=== PATIENT | male | born 1950 | race Caucasian/White ===

== ENCOUNTER 2019-07-23 07:23 | Outpatient (CLI) | payer OTHER, SELFPAY ==
--- NOTE | 2019-07-23 07:31 | USCV_ITS ---
JEFFREY PADILLA Age: 68 Gender: M : 1950 Exam Date: 07/23/2019 07:46 Ordering Phys: Azeem Ramirez MD ([email or web address]) Technologist: Jamari Anderson Exam Location: [facility] – [place] Indication: MURMUR BP: 127 / 73 HR: 73 Rhythm: Sinus Technical Quality: Fair MEASUREMENTS (Male / Female) Normal Values 2D ECHO LV Diastolic Diameter PLAX 4.1 cm 4.2 - 5.9 / 3.9 - 5.3 cm LV Systolic Diameter PLAX 2.7 cm IVS Diastolic Thickness 1.0 cm 0.6 - 1.0 / 0.6 - 0.9 cm IVS Systolic Thickness 1.3 cm LVPW Diastolic Thickness 1.0 cm 0.6 - 1.0 / 0.6 - 0.9 cm LVPW Systolic Thickness 1.4 cm LVOT Diameter 2.0 cm LV Ejection Fraction 2D Teich 64.6 % LA Diameter 4.8 cm LA Width 4.1 cm LA Height 5.8 cm RA Width 3.8 cm RA Height 4.9 cm Aorta at Sinotubular Diameter 3.2 cm M-MODE LV Diastolic Diameter MM 5.4 cm 4.2 - 5.9 / 3.9 - 5.3 cm LV Systolic Diameter MM 4.0 cm LV Ejection Fraction MM Teich 51.3 % IVS Diastolic Thickness MM 1.3 cm 0.6 - 1.0 / 0.6 - 0.9 cm IVS Systolic Thickness MM 1.5 cm LVPW Diastolic Thickness MM 1.2 cm 0.6 - 1.0 / 0.6 - 0.9 cm LVPW Systolic Thickness MM 1.6 cm RV Diastolic Diameter MM 1.5 cm Aortic Annulus Diameter 3.9 cm LA Ao Ratio MM 1.2 MV E Point Septal Separation 1.5 cm DOPPLER AV Peak Velocity 399.0 cm/s LVOT Peak Velocity 98.0 cm/s AV Area Cont Eq vti 0.8 cm squared AV Area Cont Eq pk 0.8 cm squared MV E' Velocity 10.0 cm/s TR Peak Velocity 202.0 cm/s TR Peak Gradient 16.3 mmHg TV Peak E Velocity 103.0 cm/s Right Atrial Pressure 3.0 mmHg Pulmonary Artery Systolic Pressu 19.3 mmHg FINDINGS Left Ventricle Normal left ventricular size and systolic function, EF 65%.mild left ventricular hypertrophy. No regional wall motion abnormalities. Right Ventricle The right ventricle is normal in size and function. Right Atrium The right atrium is normal in size. Left Atrium Mildly increased left atrial size. Mitral Valve Thickened mitral valve. Aortic Valve Possibly severe aortic valve stenosis with a peak velocity of 4 m/s with a peak gradient of 64 and a mean gradient of 30 mmHg. Calculated aortic valve area of 0.76 cm squared Tricuspid Valve Trace tricuspid valve regurgitation. Pulmonic Valve Pulmonic valve not well visualized. Pericardium Normal pericardium without effusion. Aorta Normal ascending aorta dimension. CONCLUSIONS Normal left ventricular size and systolic function, EF 65%.mild left ventricular hypertrophy. No regional wall motion abnormalities. Possibly severe aortic valve stenosis with a peak velocity of 4 m/s with a peak gradient of 64 and a mean gradient of 30 mmHg. Calculated aortic valve area of 0.76 cm squared. Thickened mitral valve. Trace tricuspid valve regurgitation. There is no pericardial effusion. There are no intracardiac masses. Technically somewhat difficult study No previous study is available for comparison. Dr Mono Hartman MD [facility] (Electronically Signed) Final Date: 23 July 2019 23:03 S
== END 2019-07-23 07:24 | disposition home or self-care (01) ==
LOC: RAD 07:28
PROVIDERS: PCP Internal Medicine; Visit Provider Internal Medicine Cardiovascular Disease
DX: R01.1 Cardiac murmur, unspecified (principal); I05.9 Rheumatic mitral valve disease, unspecified
CPT/HCPCS: 93306

== ENCOUNTER 2019-08-22 13:20 | Outpatient (CLI) | payer OTHER, SELFPAY ==
[2019-08-22 14:25] LABS: Basophils % 0.6 %; Eosinophils # 0.1 10^3/uL (0.0-0.8); Eosinophils % 1.2 %; Hematocrit 45.5 % (42.0-52.0); Hemoglobin 15.2 g/dL (11.7-16.6); Lymphocytes % 43.8 %; Mean Corpuscular HGB Conc 33.4 g/dL (30.0-36.0); Mean Corpuscular Hemoglobin 29.5 pg (28.0-34.0); Mean Corpuscular Volume 88.2 fL (80-94); Mean Platelet Volume 9.8 fL (7.4-10.4); Monocytes # 0.4 10^3/uL (0.2-0.9); Monocytes % 6.2 %; Neutrophils # 3.3 10^3/uL (1.8-7.7); Neutrophils % 48.1 %; Nucleated Red Blood Cells % 0 %; Platelet Count 221 10^3/cmm (130-400); Red Blood Count 5.16 10^6/uL (4.1-5.3); Red Cell Distribution Width 13.4 % (12.1-15.1); White Blood Count 6.9 10^3/uL (4.0-10.0)
[2019-08-22 14:38] LABS: INR 0.93 (0.8-1.2)
[2019-08-22 14:39] LABS: Partial Thromboplastin Time 24.2 SECONDS (23.9-36.7)
== END 2019-08-22 13:21 | disposition home or self-care (01) ==
LOC: LAB 13:27
PROVIDERS: PCP Internal Medicine; Visit Provider Internal Medicine Cardiovascular Disease
DX: I10 Essential (primary) hypertension (principal); I35.0 Nonrheumatic aortic (valve) stenosis; R01.1 Cardiac murmur, unspecified; Z79.82 Long term (current) use of aspirin; Z79.899 Other long term (current) drug therapy
CPT/HCPCS: 83880; 85025; 85610; 85730; 86850; 86900

== ENCOUNTER 2019-10-10 15:06 | Outpatient (CLI) | payer OTHER, SELFPAY ==
[2019-10-10] VITALS (29 sets, daily range): BP systolic 110–144; BP diastolic 70–86; PULSE 53–74; RESP 16–18; TEMP 36.6; O2SAT 91–96; BMI 29.0
[2019-10-10 08:05] LABS: Basophils % 0.6 %; Eosinophils # 0.2 10^3/uL (0.0-0.8); Eosinophils % 2.8 %; Hematocrit 44.1 % (42.0-52.0); Hemoglobin 14.9 g/dL (11.7-16.6); Lymphocytes # 2.6 10^3/uL (0.8-4.8); Lymphocytes % 39.1 %; Mean Corpuscular HGB Conc 33.8 g/dL (30.0-36.0); Mean Corpuscular Hemoglobin 30.5 pg (28.0-34.0); Mean Corpuscular Volume 90.2 fL (80-94); Mean Platelet Volume 9.9 fL (7.4-10.4); Monocytes # 0.6 10^3/uL (0.2-0.9); Monocytes % 8.7 %; Neutrophils # 3.2 10^3/uL (1.8-7.7); Neutrophils % 48.7 %; Nucleated Red Blood Cells % 0 %; Platelet Count 199 10^3/cmm (130-400); Red Blood Count 4.89 10^6/uL (4.1-5.3); Red Cell Distribution Width 13.2 % (12.1-15.1); White Blood Count 6.7 10^3/uL (4.0-10.0)
[2019-10-10 08:16] LABS: INR 0.94 (0.8-1.2)
[2019-10-10 08:22] LABS: Anion Gap 15.5 (5-19); Blood Urea Nitrogen 23 mg/dL (8-23); Calcium 9.9 mg/dL (8.5-10.5); Carbon Dioxide 24 mmol/L (22-29); Chloride 100 mmol/L (98-107); Glomerular Filtration Rate 54.9 mL/min (90-130); Glucose 109 mg/dL (65-115); Osmolality Calculated 277 mOsm/kg (285-295); Potassium 4.5 mmol/L (3.5-5.1); Sodium 135 mmol/L (136-145)
--- NOTE | 2019-10-10 08:30 | XACV_ITS ---
Ht: 163 cm Wt: 77 kg BSA: 1.88 m2 Gender: Male : 1950 Exam Priority: Routine Indication(s): - Aortic stenosis by Echo Procedure(s): Procedure Description: Diagnostic procedure Procedure Description: Left Heart Catheterization Procedure Description: Right Heart Catheterization Procedure Description: O2 saturation Procedure Description: Coronary Angiography Diagnostic Cath Status: Elective Diagnostic Findings No significant disease noted in the Left Main, LAD, Circumflex, or RCA coronary arteries. Coronary angiography shows right dominance. PCI Status: Elective Conclusions R ight heart CATHETERIZATION #1 Mildly elevated PCWP 17mmHg #2 normal PA mean 23 mmHg#3 Mildly elevated right ventricular pressure 32/2#4 RA mean 9 mmHgCardiac output by [facility] 5 L/m cardiac index 2.8 L/m/m2No shunt noted in the chambersPeak to peak aortic gradient was 35 mmHg consistent with severe aortic stenosis . No significant disease noted in the Left Main, LAD, Circumflex, or RCA coronary arteries. Indication for left heart catheterization: Preoperative procedure for aortic valve replacement due to severe stenosis. Recommendations Continue current medical management and risk factor modification. Refer to CT surgery for aortic valve replacement. Diagnostic RX Recommendation: none Pressures Phase:Rest AO : 140 mmHg / 24 mmHg ( 54 mmHg ) @ 6:24:00 AM 111 mmHg / 50 mmHg ( 76 mmHg ) @ 6:24:00 AM 102 mmHg / 69 mmHg ( 82 mmHg ) @ 6:45:00 AM LV : 145 mmHg / 7 mmHg / @ 6:23:00 AM RV : 36 mmHg / 2 mmHg / @ 5:53:00 AM PA : 183 mmHg / 166 mmHg ( 164 mmHg ) @ 5:51:00 AM 34 mmHg / 8 mmHg ( 15 mmHg ) @ 5:51:00 AM 41 mmHg / 16 mmHg ( 23 mmHg ) @ 5:52:00 AM RA : a wave = v wave = mean = 9 mmHg @ 5:55:00 AM a wave = v wave = mean = 9 mmHg @ 5:55:00 AM O2 Content Phase:Rest PA : O2 Content O2: 76.9 % @ 6:45:00 AM Saturations Phase:Rest AO : 99 % @ 6:23:00 AM RA : 78 % @ 6:24:00 AM RV : 77 % @ 6:24:00 AM PA : 77 % @ 6:45:00 AM Cardiac Output Phase:Rest [facility] : 5 l/min @ 6:24:00 AM [facility] Cardiac Index: 3 L/min/m2 @ 6:24:00 AM Clinical Evaluation EBL: 5mL-10mL Procedural Details Procedure Consent Obtained. Pre-Procedure Time Out. Identified patient by full name and date of as verbalized by the patient/guarantor. Does the consent match the physician's order: Yes. Accurate & Complete Informed Consent: Yes. Inpatient/Outpatient History & Physical on Chart: Yes. If H&P is completed, is and addenduem needed: No; If yes, is the addendum complete: N/A. Visualize and Verify Site with Patient/Guarantor: N/A. Relevant Radiology Images available: N/A. The risks, benefits, and alternatives of sedation and/or procedure were discussed by physician. The patient agrees to continue. Procedure started. Correct patient, site and procedure confirmed by cath team. PERRLA. Strong, equal hand pediatric dental assistant bilaterally. Lungs clear x 5 lobes. IV Site on Arrival: 20 gauge in the left anticubital. IV Fluids: 0.9% NaCl at KVO. 100 mL infused prior to tin can laborer. Pre Procedural Pulses: bilateral dorsalis pedis was 2+. Pre Procedural Pulses: bilateral posterior tibial was 2+. Pre Procedural Pulses: right radial was 2+. bilateral groins was prepped with chloroprep then draped in the usual sterile fashion. right brachial was prepped with chloroprep then draped in the usual sterile fashion. right radial was prepped with chloroprep then draped in the usual sterile fashion. Physician notified. Baseline sample Acquired. HR: 85 BPM. Patient's family unavailable. Equipment: 6F - Radial. Correct Patient: Yes; Correct Procedure: Yes; Correct Site: Yes; Correct Patient Position: Yes; Correct Supplies: Yes; Dried Flammable Prep: Yes; Blood Products Available: N/A;. Current diagnosis: Severe aortic stenosis. Physician arrived. Physician scrubbed in. Immediate Pre-Procedure Time Out. Lidocaine 1% infiltrated to the right brachial. 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 Chest Pain Symptom Assessment: typical #2. Cardiovascular Instability: No,. [place] MON catheter inserted. Oximetry samples were obtained. Normal venous range: 60-85%. Normal arterial range: 95-100%. Pressure measurements obtained. [place] out. Lidocaine 1% infiltrated to the right radial. A 6 croatian TIG catheter in over wire. Catheter inserted over the exchange wire. Catheter out. Catheter removed over the exchange wire. A 6 croatian Duncan catheter in over wire. Multiple views taken of right coronary artery. EDP Sample taken: LV 145/7,17; HR: 59 BPM; SpO2: 90%. Pullback taken: LV Off; AO Off; Mean: , Peak to Peak: , SEP: ; HR: 53 BPM; SpO2: 91%. A 6 croatian AL1 catheter in over wire. A 6 croatian JL4.5 catheter in over wire. Multiple views taken of left coronary artery. CRD 6 FR XB 3.5 GUIDE inserted and left coronary views taken. A 5 croatian Angled Pig catheter in over wire. Aortagram performed in [place] @ 10 mL/second for a total of 40 mL. TR band placed. Hemostasis obtained. Brachial sheath removed compression bandage applied. Post Procedure: Pulses reassessed and unchanged. PERRLA. Strong, equal hand pediatric dental assistant bilaterally. No VTE prophylaxis required. Total IV fluids: 30 mL. Fluoro: 22:00. Contrast type used: Omnipaque 300 mgI/mL, 500 mL bottle. Post-op diagnosis: severe aortic stenosis. Complications: none. Estimated blood loss: 5mL-10mL. Procedure completed. Medication's Wasted: Lidocaine 1% = 12 mL. Medication's Wasted: Nitro = 49.8 mL. Medication's Wasted: Heparin = 1000 Units. Medication's Wasted: Other Fentnyl= 50 mg. Medication's Wasted: Other Versed = 1 mg. Patient transferred by wheelchair to [address] [place] [address]. Vital chart was stopped. Omnipaque 213mL. Site: Right Brachial Vein Sheath Size: 6 Fr Hemostasis Success: Unsuccessful Site: Right Radial artery Sheath Size: 6 Fr Hemostasis Success: Unsuccessful Procedure Medications Start: 10:31 AM Stop: 10:31 AM Medication: Versed Amount: 1 mg Route: I.V. Start: 10:32 AM Stop: 10:32 AM Medication: Fentanyl Amount: 50 mcg Route: I.V. Start: 10:40 AM Stop: 10:40 AM Medication: Versed Amount: 1 mg Route: I.V. Start: 11:04 AM Stop: 11:04 AM Medication: Nitrogylcerin Amount: 200 mcg Route: I.A. Start: 11:07 AM Stop: 11:07 AM Medication: Heparin Amount: 5000 units Route: I.V. Start: 11:19 AM Stop: 11:19 AM Medication: Versed Amount: 1 mg Route: I.V. I, the attending physician, have reviewed and verified all procedure medications. Yes, all medications given per verbal order History/Risk Factors Hypertension: Yes Dyslipidemia: No Peripheral Arterial Disease (PAD): No Myocardial Infarction (AR): No Obesity: No Renal Disease: No Tobacco Use: Former Prior Interventions PCI: No CABG: No Valve Surgery: No Report Signatures Finalized by:Azeem Ramirez MD on 10/13/2019 4:04:07 PM
--- NOTE | 2019-10-10 08:46 | PC.NURSE ---
Creatinine Dr Raimrez notified of creatinine of 1.3, no previous labs to compare. Orders to start NS at 100ml/hr at this time.
[2019-10-10] MEDS: sodium chloride 0.9% 1,000 ML 100 ML IV (08:51)
[2019-10-10] MEDS: diphenhydrAMINE 50 mg Capsule PO (08:52)
--- NOTE | 2019-10-10 09:29 | PM.SDS ---
Short Stay Summary Providers Date of Admit/Discharge: 10/10/19 Attending Provider: Azeem Ramirez MD Primary Care Provider: aMrkie Snell HPI History of Present Illness Georges David is a 68 year old male Past medical history significant for attention, history of smoking quit many years ago, Hyperlipidemic, diabetic with baseline creatinine of 1.3 He is here for left and right heart catheterization as a preop work for severe aortic stenosis. Recent echocardiogram was suggestive of aortic valve area of 0.76 cm care with 4 m/s velocity across the aortic valve. Peak and mean gradient was 64 and 30 mmHg respectively. On a steady pace he still can walk but become short of breath upon mild to moderate exertion. He denies syncope. Left Ventricle ejection fraction was within normal limits of 64%. Last time he Treated me in the clinic in July of this year. There is no interval change in history and physical examination. He denies fever or chills or cough nausea vomiting diarrhea recent traveling or contact with sick person. Review of Systems General: Reports: 10 or more systems reviewed and unremarkable except in HPI and below Const: Denies: fever, chills, body aches, change in appetite, change in weight, malaise, night sweats or diaphoresis Eyes: Denies: change in vision or blurry vision Card: Reports: shortness of breath on exertion; Denies: chest pain, palpitations, irregular heart rhythm, edema, swelling of feet/ankles, lightheadedness, syncope, pre-syncope, shortness of breath when lying down or leg pain with exertion Resp: Reports: shortness of breath; Denies: productive cough, non-productive cough, wheezing, stridor, pain on inspiration, change in phlegm color, coughing up blood or chest congestion GI: Denies: abdominal pain, nausea, vomiting or vomiting blood Musc: Denies: neck pain, back pain or extremity pain Skin/Breast: Denies: rash, itching or redness Neuro: Denies: headache, numbness in extremities or weakness in extremities Psych: Denies: anxiety, depression or mood swings Endo: Reports: excessive urination Home Meds/Allergies Home Medications and Allergies Home Medications Medication Instructions Recorded Confirmed Type amlodipine 5 mg tablet 5 mg PO DAILY 07/31/19 10/09/19 History aspirin 325 mg tablet 325 mg PO DAILY 07/31/19 10/09/19 History atorvastatin 40 mg tablet 40 mg PO DAILY 07/31/19 10/09/19 History benazepril 20 mg tablet 10 mg PO DAILY 07/31/19 10/09/19 History fluticasone propionate 50 1 spray INTRANASAL DAILY 07/31/19 10/09/19 History mcg/actuation nasal spray,suspension metformin 1,000 mg tablet 500 mg PO BID tab 07/31/19 10/09/19 History Allergies Allergy/AdvReac Type Severity Reaction Status Date / Time Penicillins Allergy Unknown Unknown Verified 07/31/19 10:53 PFSH Acute PFSH: Medical History (Updated 10/10/19 @ 09:51 by Azeem Ramirez MD) Aortic stenosis, severe Patient today is here for preop aortic valve left and right heart CATHETERIZATION. Patient has been explained all risks benefits and alternative for the procedure. He would like to proceed with it.Further plan will be advised after angiogram/PCI if indicated for coronary artery disease. Heart murmur HTN (hypertension) Well controlled. Continue current regimen. Hyperlipemia Renal dysfunction Baseline creatinine 1.3. Patient has been gently Hydrated with IV fluid. Social History Smoking and tobacco status: former smoker History of recent travel: No Vitals/I&O/Wt Last Vital Signs Temp 97.9 F 10/10/19 08:23 Pulse 61 10/10/19 08:23 Resp 18 10/10/19 08:23 BP 144/86 10/10/19 08:23 Pulse Ox 96 10/10/19 08:23 Weight last 48 hrs Weight 169 lb Physical Exam Narrative: EXAM NARRATIVE: GENERAL: Patient is alert, awake and oriented x3. NECK: No jugular vein distension. HEENT: No cyanosis. No icterus. No pallor. HEART: Regular S1 and S2. 2/6 systolic murmur, rub or gallop. LUNGS: Clear to auscultate bilaterally. ABDOMEN: Soft, nontender and nondistended. Positive bowel sounds. No guarding, rebound or tenderness. CENTRAL NERVOUS SYSTEM: Grossly nonfocal. EXTREMITIES: Lower extremities trace edema bilaterally. Hospital Course Admission Diagnoses: Severe aortic stenosis hypertension Hyperlipidemia Hospital Course: Patient underwent right and left heart CATHETERIZATION for severe aortic stenosis diagnosed on the basis of physical examination symptoms and echocardiogram. Left heart catheterization showed normal coronaries. Pressure gradient across the aortic valve was 35 mmHg which was peak to peak. Postop recovered without any complication.Patient was given IV fluid before and after the procedure.Overall he is stable Can be discharged home. He is going to follow-up with Dr. Fine for aortic valve replacement consultation. Discharge Summary: As above SSS Data Data Completed and Pending: Pending at discharge Category Date Time Status DIRECTOR OF EMERGENCY NURSING request for service Routin e Exams 10/10/19 08:30 Ordered Diagnoses at Discharge Discharge Diagnosis (1) Aortic stenosis, severe: Status: Acute Problem details: Patient today is here for preop aortic valve left and right heart CATHETERIZATION. Patient has been explained all risks benefits and alternative for the procedure. He would like to proceed with it.Further plan will be advised after angiogram/PCI if indicated for coronary artery disease. (2) Renal dysfunction: Status: Acute Problem details: Baseline creatinine 1.3. Patient has been gently Hydrated with IV fluid. (3) HTN (hypertension): Status: Acute Problem details: Well controlled. Continue current regimen. Qualifiers: Hypertension type: essential hypertension Qualified Code(s): I10 - Essential (primary) hypertension Discharge Plan Discharge Condition: Stable Prescriptions: Continued aspirin 325 mg tablet 325 mg PO DAILY RF: 0 metformin 1,000 mg tablet 500 mg PO BID RF: 0 fluticasone propionate [Children's Flonase Allergy Rlf] 50 mcg/actuation spray,suspension 1 spray INTRANASAL DAILY RF: 0 atorvastatin 40 mg tablet 40 mg PO DAILY RF: 0 amlodipine 5 mg tablet 5 mg PO DAILY RF: 0 benazepril 20 mg tablet 10 mg PO DAILY RF: 0 Discharge Orders: Discharge Order (Routine); Ordered 10/10/19 Ordered By: Azeem Ramirez Referrals: Bassam Fine MD [Physician] - 10/17/19 2:30 pm Discharge Diet: Diabetic, Low Salt and Low Cholesterol Discharge Activity: Increase activity as tolerated Patient Instructions: Left Heart Catheterization (DC), Right Heart Catheterization (DC) Activity Restrictions/Additional Instructions: No lifting of weight with right hand for next 48 hours. You will be scheduled to see Dr. Fine heart surgeon for aortic valve replacement consultation over the next few days. Dr. Fine's nurse will call you for an appointment. Attestations Medical Necessity Statement*: Patient can be discharged home Time Spent in Patient Care*: greater than 30 min Specific Discharge Activities: Specific discharge activities: educating patient Quality Metrics Clinical Quality Measures: During this hospital stay, did patient experience: None Coding Level of Care Code Acute Vb Net Programmer for Chg Fwd Diagnoses Aortic stenosis, severe I35.0 Renal dysfunction N28.9 HTN (hypertension) I10 Hypertension type: essential hypertension
--- NOTE | 2019-10-10 09:51 | W.PM.OPSUD ---
Surgery/Procedure H&P Update DATE OF PROCEDURE: October 10, 2019 DATE H&P PERFORMED: 10/10/19 H&P UPDATE INFORMATION: I have reviewed H&P completed within last 30 days, I have examined patient prior to procedure and No changes to prior documentation PREOP DIAGNOSIS: Severe aortic valve disease PLANNED PROCEDURE: Operation Date: 10/10/19 08:30 Proposed Procedures p Cardiac Catheterization(Bilateral) - Azeem Ramirez MD PATIENT REASSESSED PRIOR TO SEDATION, WITH NO CHANGE NOTED: Yes PHYSICAL EXAM: alert, oriented x 3, clear to auscultation bilaterally and regular rate & rhythm AIRWAY EVAL/ANESTHESIA PLAN: normal airway, see other exam findings, ASA II, Local Anesthesia, Risks, benefits & alternatives of sedation and/or procedure discussed and Patient agrees to continue as planned
--- NOTE | 2019-10-10 19:28 | PC.NURSE ---
TR band removed from right wrist. No s/s of bleeding or hematoma formation observed. Cleaned site, applied 2x2 and coban. Instructed patient on site care and restrictions. Patient verbalized complete understanding. Patient stated, I will be extra careful for a few days. I don't want to start bleeding. VS remained WNL.
--- NOTE | 2019-10-10 19:53 | PC.NURSE ---
Patient discharged to home. Patient had dressing in place to right wrist that is clean, dry, and intact. No s/s of bleeding or hematoma formation observed. Reinforced education regarding site care and restrictions. Instructed on follow up information. Patient verbalized complete understanding of all instruction. Patient left ambulatory to private vehicle accompanied by OLIVIA Marlow to ED exit.
== END 2019-10-10 19:56 | disposition home or self-care, planned readmission (81) ==
LOC: MEDSURG 18:32 → OPMS 10-11 08:12 → MEDSURG 10-14 07:53
PROVIDERS: PCP Internal Medicine; Visit Provider Internal Medicine Cardiovascular Disease
DX: I35.0 Nonrheumatic aortic (valve) stenosis (principal); N28.9 Disorder of kidney and ureter, unspecified; I10 Essential (primary) hypertension; Z79.82 Long term (current) use of aspirin; Z87.891 Personal history of nicotine dependence; E78.5 Hyperlipidemia, unspecified; E11.9 Type 2 diabetes mellitus without complications; Z79.84 Long term (current) use of oral hypoglycemic drugs
CPT/HCPCS: 12345; 80048; 85025; 85610; 93460; 93567; 96360; 96361; C1751; C1769; C1887; C1894; J1644; J2001; J2250; J3010; J3490; J7030; Q0163; Q9967

== ENCOUNTER 2019-10-23 11:16 | Outpatient (CLI) | payer OTHER, SELFPAY ==
--- NOTE | 2019-10-23 11:45 | USCV_ITS ---
Georges David Age: 68 Gender: M : 1950 Exam Date: 10/23/2019 11:31 Ordering Phys: Bassam Fine MD (Andy) ([email or web address] [place] Technologist: Estephania Cantu Exam Location: [facility] – [place] Indication: TIA Risk Factors: Unknown Previous Vascular Surgery: None Right Brachial BP: / Left Brachial BP: / Right Left Velocity (cm/s) Spectral Plaque Velocity (cm/s) Spectral Plaque Syst/Diast Broadening Syst/Diast Broadening 56.20/ 16.50 Prox CCA 78.50 / 31.10 48.50/ 22.10 Mid CCA 59.80 / 24.10 52.90/ 22.10 Distal CCA 48.90 / 21.00 28.70/ 12.40 Prox ICA 22.00 / 13.00 31.10/ 16.30 Mid ICA 32.90 / 17.10 44.30/ 22.50 Distal ICA 41.70 / 23.80 71.70 ECA 52.80 0.91 ICA/CCA 0.70 Antegrade Vertebral Antegrade 38.10/ 14.00 cm/s 29.10/ 15.60 cm/s Tri Subclavian Tri 46.60 36.30 FINDINGS Comparison: none available. No significant elevation of systolic or diastolic velocities. Waveforms are normal. No significant amount of calcified plaque or intimal thickening identified. CONCLUSIONS Normal carotid doppler ultrasound. Dr. Lauren Falcon DO (Electronically Signed) Final Date: 23 Oct 2019 11:58 S
== END 2019-10-23 11:17 | disposition home or self-care (01) ==
LOC: RAD 11:19
PROVIDERS: PCP Internal Medicine; Visit Provider Thoracic Surgery (Cardiothoracic Vascular Surgery)
DX: G45.9 Transient cerebral ischemic attack, unspecified (principal)
CPT/HCPCS: 93880

== ENCOUNTER 2019-10-28 16:35 | Inpatient (IN) | payer OTHER, SELFPAY ==
[2019-10-25 08:24] VITALS: BMI 26.6
--- NOTE | 2019-10-25 09:03 | ANES.PREANE2 ---
Pre-Anesthetic Assessment Pre-Anesthetic Assessment: Height/Weight: Height 1.65 m Weight 72.575 kg Preop Diagnosis: Severe aortic valve disease Proposed Procedure: Operation Date: 10/28/19 07:00 Proposed Procedures p Aortic Valve Replacement(Not Applicable) - Bassam Fine MD Familial anesthetic complications: None Social: Social History: No alcohol and No tobacco Exam: Pre-Anes Outpt Exam: alert, oriented x 3, clear to auscultation bilaterally and regular rate & rhythm Airway: Cervical ROM: WNL MP: 3 Dentition: False Pulmonary: Pulmonary: None reported CV/HEM: CV/HEM: HTN and Murmur (aortic stenosis) : : None reported Hepatic: Hepatic: None reported GI: GI: None reported Metabolic: Metabolic: None reported Musc/skel: Comments: L1 compression fracture Neuropsych: Neuropsych: TIA ( last year) Anesthetic Plan: ASA status: 4 Anesthesia: General Risk of > 500 ml blood loss (7ml/kg in children): No PFSH Anesthesia PFSH: Medical History (Updated 10/17/19 @ 15:32 by Bassam Fine MD) Aortic stenosis, severe Heart murmur HTN (hypertension) Well controlled. Continue current regimen. Hyperlipemia Renal dysfunction Baseline creatinine 1.3. Patient has been gently Hydrated with IV fluid. Social History Smoking and tobacco status: former smoker Alcohol intake: current Alcohol intake frequency: other Household members: spouse Marital status: service: Yes Current occupational status: retired History of recent travel: No Data Anesthesia Cardiac Studies: No Data to Display
[2019-10-25 09:09] LABS: Basophils # 0.1 10^3/uL (0.0-0.1); Basophils % 0.8 %; Eosinophils # 0.1 10^3/uL (0.0-0.8); Eosinophils % 1.8 %; Hematocrit 44.9 % (42.0-52.0); Hemoglobin 15.1 g/dL (11.7-16.6); Lymphocytes # 2.6 10^3/uL (0.8-4.8); Lymphocytes % 41.3 %; Mean Corpuscular HGB Conc 33.6 g/dL (30.0-36.0); Mean Corpuscular Hemoglobin 30.4 pg (28.0-34.0); Mean Corpuscular Volume 90.5 fL (80-94); Mean Platelet Volume 9.9 fL (7.4-10.4); Monocytes # 0.4 10^3/uL (0.2-0.9); Neutrophils # 3.1 10^3/uL (1.8-7.7); Neutrophils % 48.9 %; Nucleated Red Blood Cells % 0 %; Platelet Count 220 10^3/cmm (130-400); Red Blood Count 4.96 10^6/uL (4.1-5.3); Red Cell Distribution Width 13.3 % (12.1-15.1); White Blood Count 6.3 10^3/uL (4.0-10.0)
[2019-10-25 09:16] LABS: INR 0.94 (0.8-1.2)
[2019-10-25 09:17] LABS: Partial Thromboplastin Time 28.5 SECONDS (23.9-36.7)
[2019-10-25 09:29] LABS: Alanine Aminotransferase 21 U/L (0-41); Albumin Level 4.4 g/dL (3.5-5.2); Alkaline Phosphatase 79 IU/L (40-130); Anion Gap 16.6 (5-19); Aspartate Amino Transferase 17 U/L (0-40); Blood Urea Nitrogen 18 mg/dL (8-23); Calcium 10.2 mg/dL (8.5-10.5); Carbon Dioxide 24 mmol/L (22-29); Chloride 102 mmol/L (98-107); Globulin 3.3 g/dL (1.3-4.6); Glomerular Filtration Rate 54.7 mL/min (90-130); Glucose 110 mg/dL (65-115); Osmolality Calculated 283 mOsm/kg (285-295); Potassium 4.6 mmol/L (3.5-5.1); Sodium 138 mmol/L (136-145); Total Bilirubin 0.7 mg/dL (0.15-1.2); Total Protein 7.7 g/dL (6.6-8.7)
[2019-10-25 09:44] LABS: Add Urine Microscopic? YES; Bilirubin Urine Neg (NEGATIVE); Blood Urine 2+ (Negative); Glucose Urine UA Norm (Normal); Ketones Urine Negative (Negative); Leukocyte Esterase Urine Negative (Negative); Nitrate Urine Negative (Negative); Protein Urine Neg (Negative); Urine Appearance Clear (CLEAR); Urine Color Yellow (Yellow); Urobilinogen Urine Norm (Negative)
[2019-10-25 09:45] LABS: Add Urine Culture? No; Bacteria Urine TRACE; Mucus Urine 2+; RBC Urine 0-4 /hpf (0-2); Squamous Epithelial Cell Urine 0-4 (0-5)
[2019-10-28] VITALS (54 sets, daily range): BP systolic 81–141; BP diastolic 43–91; PULSE 61–100; RESP 13–26; TEMP 36.4–38; O2SAT 94–100
[2019-10-28] MEDS: sodium chloride 0.9% 1,000 ML 30 ML IV (05:29)
[2019-10-28 05:32] LABS: Glucose Point of Care 106 mg/dL (70-110)
--- NOTE | 2019-10-28 05:45 | XR_ITS ---
WS: [id number] Portable AP upright chest, 10/28/2019 Clinical Data: protocol for anesthesia Comparison: None. Findings: No nodules, masses or effusions are seen. The heart is normal. The pulmonary vascularity is not increased. No pneumonia or pneumothorax is seen. The aortic arch and descending aorta show tortu osity. There is levoscoliosis of the lower thoracic spine. XR/XR chest 1V portable [id number] Impression: Atherosclerosis.
--- NOTE | 2019-10-28 06:13 | ECG_ITS ---
Measurements Intervals [place] Rate: 62 P: 26 W[place]: 213 QRS: -20 QRSD: 88 T: -7 QT: 400 QTc: 407 SINUS RHYTHM WITH FIRST DEGREE AV BLOCK No previous ECG available for comparison Electronically Signed On 10-28-2019 19:47:09 CDT by Kelle Carter M.D. [email or web address]
--- NOTE | 2019-10-28 06:20 | P.ANESUD_ITS ---
Pre-Anesthetic Update Pre-Anesthetic Assessment: Date of Surgery/Procedure: 10/28/19 Preop Krys gnosis: Severe aortic valve stenosis Proposed Procedure: Operation Date: 10/28/19 07:00 Proposed Procedures p Aortic Valve Replacement(Not Applicable) - Bassam Fine MD Any changes to Pre-Anesthetic Assessment?: No Last Intake: Intake Last Liquid Date 10/27/19 Last Liquid Time 22:00 Last Solid Date 10/27/19 Last Solid Time 22:00 Labs Last 48hrs: Laboratory Results - last 48 hr 10/25/19 10/28/19 08:47 05:30 POC Glucose 106 Blood Type A Positive Rho(D) Type Positive Antibody Screen Negative Crossmatch See Detail Vitals: Temperature 97.6 F 10/28/19 05:20 Temperature Source Temporal Artery S can 10/28/19 05:20 Pulse Rate 61 10/28/19 05:20 Pulse Rhythm 10/28/19 05:20 Pulse Strength 3+ Normal 10/28/19 05:20 Respiratory Rate 18 10/28/19 05:20 Blood Pressure 141/91 10/28/19 05:20 Blood Pressure Colleen n 107 10/28/19 05:20 Pulse Oximetry 95 10/28/19 05:20 Oxygen Delivery Me thod 10/28/19 05:20 Exam: Pre-Anes Outpt Exam: alert, oriented x 3, clear to auscultation bilaterally and regular rate & rhythm Cardiac Studies: No Data to Display
--- NOTE | 2019-10-28 06:29 | W.PM.OPSUD ---
Surgery/Procedure H&P Update DATE OF PROCEDURE: October 28, 2019 DATE H&P PERFORMED: 10/17/19 H&P UPDATE INFORMATION: I have reviewed H&P completed within last 30 days, I have examined patient prior to procedure and No changes to prior documentation CHANGES TO PREVIOUS DOCUMENTATION: Since last clinic visit, cartotid duplex reveals no obstructive disease. I have reviewed CXR obtained today. Moderate cartdiomegaly. Clear lung davis. We have spoken with his by phone. Details and risks of surgery again reviewed. They are eager to proceed. PREOP DIAGNOSIS: Severe aortic valve stenosis PRIMARY INDICATION FOR PROCEDURE: Severe Aortic Valve Stenosis with increasing symptoms and 2 episodes of near syncope. PLANNED PROCEDURE: Operation Date: 10/28/19 07:00 Proposed Procedures p Aortic Valve Replacement(Not Applicable) - Bassam Fine MD
[2019-10-28] MEDS: vancomycin 1,000 MG in sodium chloride 0.9% 250 ML 250 MG IV ×2 (06:30→12:48)
[2019-10-28] MEDS: vancomycin 1,000 MG SDV 3000 MG IRRIGATION (08:15)
--- NOTE | 2019-10-28 08:43 | XR_ITS ---
WS: [id number] Portable AP upright chest, 10/28/2019, 1347 hours. Clinical Data: OPEN HEART AORTIC VALVE REPLACEMENT Comparison: Portable chest, 10/28/2019, 0623 hours. Findings: Patient has had cardiac surgery with midline sternotomy sutures. A [place]-Rona catheter and m ediastinal tubes are in good position. There is an endotracheal tube above the lorena. There is an es ophageal tube which ends in the midesophagus. The heart is enlarged as is the mediastinum. The pulmon radha vascularity is increased. XR/XR chest 1V portable [id number] Impression: Postoperative cardiac surgery chest x-ray.
[2019-10-28] MEDS: thrombin 5,000 unit SDV 10000 UNIT (08:54)
[2019-10-28] MEDS: calcium chloride 10% Syr 10 mL 1 GM XX (09:02)
[2019-10-28 11:21] LABS: Add Urine Culture? No; Add Urine Microscopic? YES; Bacteria Urine TRACE; Bilirubin Urine Neg (NEGATIVE); Blood Urine 2+ (Negative); Glucose Urine UA Norm (Normal); Ketones Urine Negative (Negative); Leukocyte Esterase Urine Negative (Negative); Mucus Urine TRACE; Nitrate Urine Negative (Negative); Protein Urine Neg (Negative); RBC Urine 0-4 /hpf (0-2); Urine Appearance Clear (CLEAR); Urine Color Yellow (Yellow); Urobilinogen Urine Norm (Negative); pH Urine 5 (5-7)
[2019-10-28 13:34] LABS: Basophils % 0.3 %; Eosinophils % 0.1 %; Hematocrit 24.4 % (42.0-52.0); Hemoglobin 8.1 g/dL (11.7-16.6); Lymphocytes # 1.5 10^3/uL (0.8-4.8); Lymphocytes % 12.9 %; Mean Corpuscular HGB Conc 33.2 g/dL (30.0-36.0); Mean Corpuscular Volume 93.5 fL (80-94); Mean Platelet Volume 10.1 fL (7.4-10.4); Monocytes # 0.8 10^3/uL (0.2-0.9); Monocytes % 6.9 %; Nucleated Red Blood Cells % 0 %; Platelet Count 92 10^3/cmm (130-400); Red Blood Count 2.61 10^6/uL (4.1-5.3); Red Cell Distribution Width 13.3 % (12.1-15.1); White Blood Count 11.4 10^3/uL (4.0-10.0)
--- NOTE | 2019-10-28 14:21 | XR_ITS ---
WS: [id number] Portable AP supine chest, 10/28/2019, 1409 hours Clinical Data: OPEN HEART Comparison: Portable chest, 10/28/2019, 1347 hours. Findings: No change of the previous portable chest is seen. The multiple tubes remain in same positio n. The pulmonary vascularity is increased. The heart and mediastinum have increased in size. No pneum othorax is noted. XR/XR chest 1V portable [id number] Impression: Postoperative cardiac surgery chest with no significant change.
[2019-10-28 15:01] LABS: Albumin Level 2.2 g/dL (3.5-5.2); Alkaline Phosphatase 31 IU/L (40-130); Anion Gap 13.2 (5-19); Blood Urea Nitrogen 18 mg/dL (8-23); Calcium 7.6 mg/dL (8.5-10.5); Carbon Dioxide 22 mmol/L (22-29); Chloride 116 mmol/L (98-107); Globulin 1.4 g/dL (1.3-4.6); Glomerular Filtration Rate 74.1 mL/min (90-130); Glucose 151 mg/dL (65-115); Osmolality Calculated 301 mOsm/kg (285-295); Potassium 5.2 mmol/L (3.5-5.1); Sodium 146 mmol/L (136-145); Thyroid Stimulating Hormone 2.16 uIU/mL (0.27-4.20); Total Bilirubin 0.8 mg/dL (0.15-1.2); Total Protein 3.6 g/dL (6.6-8.7)
[2019-10-28 15:24] LABS: Alanine Aminotransferase 12 U/L (0-41); Aspartate Amino Transferase 36 U/L (0-40)
[2019-10-28 15:48] LABS: Free T4 Free Thyroxine 1.43 ng/dL (0.82-1.77)
--- NOTE | 2019-10-28 15:52 | XR_ITS ---
WS: [id number] Portable AP supine chest, 10/28/2019, 1608 hours Clinical Data: OR 1 OPEN HEART Comparison: Portable chest, 10/28/2019, 1409 hours Findings: The heart and mediastinum remain enlarged. The pulmonary vascularity is increased. The mult iple tubes remain in the same position. Large diameter fiber scope has been removed XR/XR chest 1V portable [id number] Impression: No change in portable chest
--- NOTE | 2019-10-28 16:37 | PC.NURSE ---
Pt here from OR with OR staff Megan noted to the right femoral artery and the right radial artery. [place] karel catheter noted to the right internal jugular vein with the hub of the swan at 43cm. triple lumen central line noted to the the right internal jugular vein. 2 mediastinal chest tubes noted to the anterior lower chest and a wound vac noted to the sternum. Et tube and OG tube noted and brown catheter to gravity at this time. Please see PACU documentation as well and the ICU documentation.
--- NOTE | 2019-10-28 16:46 | ECG_ITS ---
Measurements Intervals [place] Rate: 81 P: 30 NV: 205 QRS: -49 QRSD: 120 T: 52 QT: 382 QTc: 445 SINUS RHYTHM WITH OCCASIONAL VENTRICULAR PREMATURE COMPLEXES POSSIBLE RIGHT VENTRICULAR CONDUCTION DELAY [RSR (QR) IN V1/V2] LEFT ANTERIOR FASCICULAR BLOCK [QRS AXIS <= -45, QR IN I, RS IN II] POSSIBLE SEPTAL MYOCARDIAL INFARCTION,OF INDETERMINATE AGE Compared to ECG 10/28/2019 06:17:36 Ventricular premature complex(es) now present Left anterior fascicular block now present Myocardial infarct finding now present First degree AV block no longer present Electronically Signed On 10-28-2019 20:15:12 CDT by Kelle Carter M.D. [id number]
[2019-10-28 17:17] LABS: ABG PCO2 34.8 mmHg (35-45); Arterial Blood Gas Hematocrit 26.9 % (42-52); Base Excess ABG -3.2 mmol/L (-2.0-2.0); Blood Gas Sample Site Not specified; Blood Gas Sample Type Arterial; Blood Gas Tidal Volume 0.6; HCO3 ABG 21.3 mmol/L (22-26); Oxygen Device VENT
--- NOTE | 2019-10-28 17:37 | PM.OP ---
Operative Report Date of procedure: October 28, 2019 Pre-op Diagnosis: Severe aortic valve stenosis Post-op diagnosis: same Procedure Done: Aortic valve replacement utilizing 21 mm pericardial tissue valve Specimens removed/disposition: Trileaflet aortic valve along with extensive calcifications removed from the anterior leaflet of the mitral valve Surgeon: Bassam Fine Anesthesia: General Complications: Nonstandard wash of Cell Saver blood Findings: Very heavily calcified trileaflet aortic valve with extensive calcification extending down onto the anterior leaflet of the mitral valve, requiring decalcification as well. Condition: stable Disposition: ICU Brief History: 69-year-old gentleman with a recent history of 2 separate TIAs. Normal carotid arteries by ultrasound. He has severe to critical aortic valve stenosis with heavy calcifications. Progressive dyspnea with exertion much more extensive over the past 6 months to 1 year. Recommendation to consider aortic valve replacement was carefully discussed. He was evaluated by cardiology underwent left heart catheterization which revealed normal coronary anatomy as determined by Dr. Ramirez. Aortic valve replacement was recommended. Details the risk of the surgery were carefully reviewed. Proper consents have been reviewed and signed. He underwent careful preoperative evaluation and patient education. Procedure: PROCEDURE: Appropriate preoperative evaluation was performed by our Anesthesia colleagues with adequate IV's established. Mr. David was brought into the Operating Room Suite and placed on the Operating Room table in the supine position. General anesthesia was carefully induced as appropriate invasive monitoring lines were placed. After careful positioning, the patient was sterilely prepped and draped. A median sternotomy incision was made in standard fashion and continued down to the sternal table. The sternum was divided with a reciprocating saw and hemostasis was controlled with cautery and bone wax. Antibiotic soaked moist laparotomy pads were placed in the wound, followed by retractor. The sternum was and a pericardial cradle was opened and suspended. The heart and great vessels were carefully inspected and cannulation sites determined. 2-0 pledgeted Ethibond sutures were placed at cannulation sites, including the aorta, right atrial appendage, aortic root and right superior pulmonary vein. Following this, the patient was fully heparinized. Next, the heart was cannulated with a 22-Syriac aortic cannula, two-stage venous cannula and an aortic root vent. A left ventricular vent was then placed through the right superior pulmonary vein. The patient was placed on cardiac pulmonary bypass and cooled systemically to 34 degrees. Aortic cross-clamp was then carefully placed and cold blood cardioplegia was administered through the aortic root as topical myocardial cooling was provided with cold saline with an insulation pad in place. Left ventricular decompression was maintained by the LV sump. After completion of the initial cardioplegic dose, a slightly oblique transverse aortotomy was created approximately 15 mm above the ostium to the right coronary artery. This aortotomy was enlarged with Metzenbaum scissors to provide adequate exposure to the diseased aortic valve. Coronary cannulae were utilized for hand injection of cardioplegia into the left main and right coronary ostia at 20 minute intervals while the aorta was opened. Next, the mary's igloo valve was inspected and found to be [bileaflet/trileaflet] and then excised utilizing a combination of Metzenbaum scissors, pituitary rongeurs for decalcification and scalpel blade as required. Great care was taken to remove all loosened debris. After adequate debridement and decalcification, with our LV sump turned off, the left ventricular cavity was irrigated with a large volume of iced saline in order to remove all debris. Following this, after inspection that the anterior leaflet of the mitral valve was intact, the aortic annulus was then carefully sized. Next, 2-0 pledgeted Ethibond sutures were placed circumferentially at the level of the annulus. After again sizing the valve, the appropriate sized 21 mm pericardial tissue valve was brought into the field. Annular sutures were placed through the valve sewing ring and the valve was lowered into position and secured. It was confirmed that the coronary ostia were not obstructed by the sewing ring. While the re-warming phase of bypass continued, the transverse aortotomy was closed with two layers of over-felt strips, utilizing 4-0 Prolene suture. The patient was then placed in deep Trendelenburg position as the cross-clamp was released and venting was performed to the aortic root and left ventricular sump. Adequate de-airing was performed and confirmed by transesophageal echocardiography. Pacing wires were placed, brought through the skin and secured. He returned initially to a sinus bradycardic rhythm and did not require cardioversion. The patient was then returned to the supine position as we continued active venting of the aortic root and LV sump. Due to somewhat irregular rhythm, we did initiate pacing at 80 bpm in DDD mode with good capture. After completion of de-airing, the LV sump was removed and the site was secured. After completion of systemic re-warming and cardiac stability, the patient was weaned from bypass without difficulty on 3 mcg per kilogram per minute of Dobutamine. Following this, venous cannula was removed and Protamine test dose was given. Next, full Protamine dose was given. The heart was then decannulated and cannulation sites were oversewn. The aortic valve was again inspected by echocardiography and confirmed to be functioning well. After initial drain placement, wound was carefully irrigated and closed in multiple layers after closing the sternum with #7 stainless steel wire. The wound was then completely closed in multiple layers. Intraoperative chest x-ray was obtained and did reveal some widening of the mediastinum consistent with some bleeding, which we felt came from the bone as it was moderately osteoporotic. We had noted some irregularity and blood pressure related to administration of Cell Saver blood. This was confusing initially. He was supple determined that the Cell Saver wash was nonstandard. We therefore discontinued infusions of Cell Saver blood and subsequently administered Decadron and Benadryl. This assisted with stabilization. After review of the nonstandard wash ingredients, platelet dysfunction was described and along with the somewhat wide mediastinum, I elected to reopen the chest which had remained sterilely prepped and draped to allow for reinspection. This was performed with no active bleeding noted except again, from the bone. The cannulation sites and aortotomy sites remained quite dry. We elected to then administer 2 units of packed RBCs as well as 2 units of pheresis platelets. This did appear to substantially improve bleeding from the bone. I then elected to again prepare for reclosure of the chest. Mediastinal drains were then placed. These were connected to Pleur-evac suction. Following this, retractor was removed and sponge and needle count was correct. After confirmation of hemostasis, the wound was irrigated. Platelet rich plasma was applied prior to reapproximating the sternal tables. The sternum was then reapproximated very carefully with interrupted #7 stainless steel wire. The fascia was closed with running #1 Vicryl suture, followed by closure of the subcutaneous layer with 2-0 and 3-0 Vicryl suture. Platelet rich plasma was also used in the subcutaneous layers. The skin was closed in a subcuticular manner. Sterile dressings were applied, followed by a vacuum-assisted dressing. After confirmation of hemodynamic stability and low chest tube output, was then transferred to the Intensive Care Unit. I did senior genetic counselor with his by phone at the completion of the procedure and did discuss the operative findings with our hospitalist colleagues. I will request their assistance of medical management related to any subsequent further effects of the use for nonstandard wash in the Cell Saver.
[2019-10-28] MEDS: propofol 1,000 MG/100 ML INJ 4.4 MG IV (17:56)
[2019-10-28] MEDS: albumin 12.5 GM/250 ML VIAL IV ×2 (17:56→23:03)
[2019-10-28 18:07] LABS: Basophils % 0.1 %; Eosinophils % 0.1 %; Hemoglobin 8.6 g/dL (11.7-16.6); Lymphocytes # 0.5 10^3/uL (0.8-4.8); Lymphocytes % 4.5 %; Mean Corpuscular HGB Conc 33.1 g/dL (30.0-36.0); Mean Corpuscular Hemoglobin 31.5 pg (28.0-34.0); Mean Corpuscular Volume 95.2 fL (80-94); Mean Platelet Volume 10.1 fL (7.4-10.4); Monocytes # 0.6 10^3/uL (0.2-0.9); Monocytes % 6.3 %; Neutrophils # 8.9 10^3/uL (1.8-7.7); Neutrophils % 88.4 %; Nucleated Red Blood Cells % 0 %; Platelet Count 199 10^3/cmm (130-400); Red Blood Count 2.73 10^6/uL (4.1-5.3); Red Cell Distribution Width 13.8 % (12.1-15.1); White Blood Count 10.1 10^3/uL (4.0-10.0)
[2019-10-28 18:11] LABS: INR 1.39 (0.8-1.2)
[2019-10-28 18:12] LABS: Partial Thromboplastin Time 33.1 SECONDS (23.9-36.7)
[2019-10-28 18:16] LABS: Anion Gap 13.9 (5-19); Blood Urea Nitrogen 17 mg/dL (8-23); Calcium 8.2 mg/dL (8.5-10.5); Carbon Dioxide 21 mmol/L (22-29); Chloride 112 mmol/L (98-107); Glucose 211 mg/dL (65-115); Magnesium 3.3 mg/dL (1.7-2.3); Osmolality Calculated 297 mOsm/kg (285-295); Potassium 4.9 mmol/L (3.5-5.1); Sodium 142 mmol/L (136-145)
[2019-10-28 21:26] LABS: Anion Gap 13.4 (5-19); Blood Urea Nitrogen 17 mg/dL (8-23); Calcium 8.1 mg/dL (8.5-10.5); Carbon Dioxide 21 mmol/L (22-29); Chloride 114 mmol/L (98-107); Glomerular Filtration Rate 54.7 mL/min (90-130); Glucose 165 mg/dL (65-115); Magnesium 2.8 mg/dL (1.7-2.3); Osmolality Calculated 298 mOsm/kg (285-295); Potassium 4.4 mmol/L (3.5-5.1); Sodium 144 mmol/L (136-145)
[2019-10-28] MEDS: chlorhexidine gluconate 0.12% Btl 473 mL 15 ML MUCOUS MEM (22:24)
[2019-10-28 23:13] LABS: ABG PCO2 40.1 mmHg (35-45); ABG PH Result 7.31 (7.35-7.45); Base Excess ABG -5.7 mmol/L (-2.0-2.0); HCO3 ABG 20.2 mmol/L (22-26); Potassium Level - ABG 5.1 mmol/L (3.5-5.0)
[2019-10-28 23:14] LABS: Arterial Blood Gas Hematocrit 27.7 % (42-52)
[2019-10-28 23:22] LABS: ABG PCO2 38.2 mmHg (35-45); ABG PH Result 7.37 (7.35-7.45); Base Excess ABG -3.1 mmol/L (-2.0-2.0); HCO3 ABG 21.9 mmol/L (22-26); Potassium Level - ABG 4.4 mmol/L (3.5-5.0)
[2019-10-28 23:30] LABS: ABG PCO2 34.1 mmHg (35-45); ABG PH Result 7.43 (7.35-7.45)
[2019-10-28 23:31] LABS: Base Excess ABG -1.3 mmol/L (-2.0-2.0); HCO3 ABG 22.6 mmol/L (22-26); Potassium Level - ABG 4.5 mmol/L (3.5-5.0)
[2019-10-28 23:32] LABS: ABG PCO2 49.2 mmHg (35-45); ABG PH Result 7.29 (7.35-7.45); HCO3 ABG 23.5 mmol/L (22-26)
[2019-10-28 23:33] LABS: Base Excess ABG -3.2 mmol/L (-2.0-2.0); Potassium Level - ABG 5.3 mmol/L (3.5-5.0)
[2019-10-28 23:35] LABS: ABG PCO2 46.9 mmHg (35-45); ABG PH Result 7.35 (7.35-7.45)
[2019-10-28 23:37] LABS: Base Excess ABG -0.3 mmol/L (-2.0-2.0); HCO3 ABG 25.6 mmol/L (22-26)
[2019-10-28 23:38] LABS: Potassium Level - ABG 5.5 mmol/L (3.5-5.0)
[2019-10-28 23:39] LABS: ABG PCO2 45.7 mmHg (35-45); ABG PH Result 7.34 (7.35-7.45); Base Excess ABG -1.5 mmol/L (-2.0-2.0); HCO3 ABG 24.4 mmol/L (22-26); Potassium Level - ABG 5.6 mmol/L (3.5-5.0)
[2019-10-28 23:41] LABS: ABG PH Result 7.31 (7.35-7.45)
[2019-10-28 23:42] LABS: Base Excess ABG -4.4 mmol/L (-2.0-2.0); HCO3 ABG 21.6 mmol/L (22-26)
[2019-10-28 23:45] LABS: ABG PCO2 40.1 mmHg (35-45); ABG PH Result 7.45 (7.35-7.45); HCO3 ABG 28.1 mmol/L (22-26)
[2019-10-28 23:46] LABS: Base Excess ABG 3.8 mmol/L (-2.0-2.0); Potassium Level - ABG 4.8 mmol/L (3.5-5.0)
[2019-10-29] VITALS (117 sets, daily range): BP systolic 90–127; BP diastolic 47–81; PULSE 61–86; RESP 8–30; TEMP 36.4–37.7; O2SAT 89–100
[2019-10-29 00:31] LABS: ABG PCO2 39.2 mmHg (35-45); ABG PH Result 7.39 (7.35-7.45); HCO3 ABG 23.7 mmol/L (22-26)
[2019-10-29 00:32] LABS: Base Excess ABG -1.2 mmol/L (-2.0-2.0); Blood Gas Sample Type ARTERIAL; Potassium Level - ABG 4.3 mmol/L (3.5-5.0)
[2019-10-29 00:33] LABS: ABG PH Result 7.34 (7.35-7.45)
[2019-10-29 00:34] LABS: Base Excess ABG -2.2 mmol/L (-2.0-2.0); HCO3 ABG 23.4 mmol/L (22-26)
[2019-10-29 00:35] LABS: Potassium Level - ABG 4.6 mmol/L (3.5-5.0)
[2019-10-29 00:44] LABS: Hematocrit 27.7 % (42.0-52.0); Hemoglobin 9.5 g/dL (11.7-16.6); Lymphocytes # 0.5 10^3/uL (0.8-4.8); Lymphocytes % 4.6 %; Mean Corpuscular HGB Conc 34.3 g/dL (30.0-36.0); Mean Corpuscular Hemoglobin 31.4 pg (28.0-34.0); Mean Corpuscular Volume 91.4 fL (80-94); Mean Platelet Volume 9.7 fL (7.4-10.4); Monocytes # 0.8 10^3/uL (0.2-0.9); Monocytes % 7.3 %; Neutrophils # 9.1 10^3/uL (1.8-7.7); Neutrophils % 87.9 %; Nucleated Red Blood Cells % 0 %; Platelet Count 141 10^3/cmm (130-400); Red Blood Count 3.03 10^6/uL (4.1-5.3); Red Cell Distribution Width 13.9 % (12.1-15.1); White Blood Count 10.3 10^3/uL (4.0-10.0)
[2019-10-29 00:57] LABS: Anion Gap 14.3 (5-19); Blood Urea Nitrogen 18 mg/dL (8-23); Calcium 7.8 mg/dL (8.5-10.5); Carbon Dioxide 21 mmol/L (22-29); Chloride 114 mmol/L (98-107); Glucose 151 mg/dL (65-115); Osmolality Calculated 299 mOsm/kg (285-295); Potassium 4.3 mmol/L (3.5-5.1); Sodium 145 mmol/L (136-145)
[2019-10-29 01:38] LABS: Basophils % 0.1 %; Hematocrit 27.4 % (42.0-52.0); Hemoglobin 9.4 g/dL (11.7-16.6); Lymphocytes # 0.5 10^3/uL (0.8-4.8); Lymphocytes % 4.8 %; Mean Corpuscular HGB Conc 34.3 g/dL (30.0-36.0); Mean Corpuscular Volume 90.4 fL (80-94); Mean Platelet Volume 10.3 fL (7.4-10.4); Monocytes # 0.7 10^3/uL (0.2-0.9); Monocytes % 6.7 %; Neutrophils # 9.1 10^3/uL (1.8-7.7); Neutrophils % 88.2 %; Nucleated Red Blood Cells % 0 %; Platelet Count 150 10^3/cmm (130-400); Red Blood Count 3.03 10^6/uL (4.1-5.3); Red Cell Distribution Width 13.8 % (12.1-15.1); White Blood Count 10.3 10^3/uL (4.0-10.0)
--- NOTE | 2019-10-29 02:24 | PC.NURSE ---
Patient Belongings Upper and lower dentures, 2 hearing aids, and glasses at bedside. Pt labels placed on items.
[2019-10-29] MEDS: fentaNYL 50 mcg/mL INJ 2mL IVP ×3 (02:29→07:29)
[2019-10-29] MEDS: sodium chloride 0.45% 1,000 ML 75 ML IV ×2 (02:36→18:35)
[2019-10-29] MEDS: albumin 12.5 GM/250 ML VIAL IV (02:39)
[2019-10-29] MEDS: vancomycin 1,000 MG in sodium chloride 0.9% 250 ML 250 MG IV ×2 (04:18→20:47)
[2019-10-29 05:01] LABS: ABG PCO2 29.9 mmHg (35-45); ABG PH Result 7.47 (7.35-7.45); PO2 ABG 61.3 mmHg (80.0-100.0)
[2019-10-29 05:02] LABS: Base Excess ABG -1.4 mmol/L (-2.0-2.0); HCO3 ABG 21.8 mmol/L (22-26); Oxygen Device VENT; Oxygen Saturation ABG 94.4
[2019-10-29 05:03] LABS: Arterial Blood Gas Hematocrit 27.1 % (42-52); Blood Gas Sample Site ARTLINE; Blood Gas Sample Type ARTERIAL; Ionized Calcium Level - ABG 1.2 mmol/L (1.1-1.4); Total Hemoglobin 8.9 g/dL (14-18)
[2019-10-29 05:24] LABS: Glucose Point of Care 116 mg/dL (70-110)
[2019-10-29 05:24] LABS: Glucose Point of Care 176 mg/dL (70-110)
[2019-10-29 05:24] LABS: Glucose Point of Care 127 mg/dL (70-110)
[2019-10-29 05:24] LABS: Glucose Point of Care 129 mg/dL (70-110)
[2019-10-29 05:24] LABS: Glucose Point of Care 137 mg/dL (70-110)
[2019-10-29 05:24] LABS: Glucose Point of Care 143 mg/dL (70-110)
[2019-10-29 05:24] LABS: Glucose Point of Care 137 mg/dL (70-110)
[2019-10-29 05:24] LABS: Glucose Point of Care 126 mg/dL (70-110)
[2019-10-29 05:24] LABS: Glucose Point of Care 136 mg/dL (70-110)
[2019-10-29 05:24] LABS: Glucose Point of Care 184 mg/dL (70-110)
[2019-10-29 05:24] LABS: Glucose Point of Care 155 mg/dL (70-110)
[2019-10-29 05:24] LABS: Glucose Point of Care 152 mg/dL (70-110)
[2019-10-29 05:24] LABS: Glucose Point of Care 127 mg/dL (70-110)
[2019-10-29 05:36] LABS: Basophils % 0.1 %; Hematocrit 24.6 % (42.0-52.0); Hemoglobin 8.3 g/dL (11.7-16.6); Lymphocytes # 0.8 10^3/uL (0.8-4.8); Lymphocytes % 7.2 %; Mean Corpuscular HGB Conc 33.7 g/dL (30.0-36.0); Mean Corpuscular Hemoglobin 30.2 pg (28.0-34.0); Mean Corpuscular Volume 89.5 fL (80-94); Mean Platelet Volume 10.4 fL (7.4-10.4); Monocytes # 0.9 10^3/uL (0.2-0.9); Monocytes % 8.3 %; Neutrophils # 9.3 10^3/uL (1.8-7.7); Neutrophils % 84.2 %; Nucleated Red Blood Cells % 0 %; Platelet Count 130 10^3/cmm (130-400); Red Blood Count 2.75 10^6/uL (4.1-5.3); Red Cell Distribution Width 14.1 % (12.1-15.1)
[2019-10-29 05:48] LABS: INR 1.21 (0.8-1.2)
[2019-10-29 05:49] LABS: Partial Thromboplastin Time 32.6 SECONDS (23.9-36.7)
[2019-10-29 05:56] LABS: Anion Gap 13.3 (5-19); Blood Urea Nitrogen 18 mg/dL (8-23); Calcium 8.7 mg/dL (8.5-10.5); Carbon Dioxide 21 mmol/L (22-29); Chloride 112 mmol/L (98-107); Glucose 123 mg/dL (65-115); Glucose Fasting 123 mg/dL (74-106); Magnesium 2.4 mg/dL (1.7-2.3); Osmolality Calculated 292 mOsm/kg (285-295); Potassium 4.3 mmol/L (3.5-5.1); Sodium 142 mmol/L (136-145)
--- NOTE | 2019-10-29 06:00 | XR_ITS ---
WS: [id number] CHEST XRAY TECHNIQUE: Portable chest. CLINICAL INFORMATION: POD#1 s/p AVR COMPARISON: October 28, 2019 FINDINGS: Endotracheal tube with tip above the lorena. Enteric tube tip below the diaphragm. Heart: Cardiomegaly. Aortic calcification. Sternotomy. Endotracheal tube with tip above the lorena. R ight IJ sheath. [place]-Rona catheter. Lungs: Postoperative changes aVR. Left costophrenic angle incompletely visualized with tiny bilateral pleural effusions. Interstitial edema has improved since yesterday. Bones: Normal visualized bony structures. XR/XR chest 1V portable [id number] IMPRESSION: 1. Recent postoperative changes aVR with improved interstitial edema. Trace pl eural effusions. 2. Stable cardiomegaly.
--- NOTE | 2019-10-29 06:00 | ECG_ITS ---
Measurements Intervals [place] Rate: 68 P: 39 AL: 231 QRS: -9 QRSD: 118 T: -2 QT: 398 QTc: 423 SINUS RHYTHM WITH FIRST DEGREE AV BLOCK LOW QRS VOLTAGE IN PRECORDIAL LEADS [QRS DEFLECTION < 1.0 mV IN CHEST LEADS] MODERATE INTRAVENTRICULAR CONDUCTION DELAY [110+ ms QRS DURATION] NONSPECIFIC ST & T-WAVE ABNORMALITY Compared to ECG 10/28/2019 19:43:38 First degree AV block now present Low QRS voltage now present Intraventricular conduction delay now present T-wave abnormality now present Ventricular premature complex(es) no longer present Left anterior fascicular block no longer present Myocardial infarct finding no longer present Electronically Signed On 10-29-2019 20:54:53 CDT by Mono Hartman M.D. [id number]
--- NOTE | 2019-10-29 06:38 | P.PN_ITS ---
Subjective Subjective: Interval history: Postop day #1 status post aortic valve replacement. Hemodynamically, uneventful night. Currently on a modest dose of nor epi to keep the SVR appropriate. Good cardiac index. Low chest tube output. Chest of output about 220 cc since surgery. Chest x-ray is much improved today with a much narrow mediastinum. FiO2 is still a bit high at 45%. Intake and output is up just over 3 L and appears to be third space. Forces, I do not think he is ready for diuresis due to this third spacing. He has received another unit of blood overnight. No arrhythmias. Is moving spontaneously though nurses think he may still be a bit confused versus having some difficulty hearing. Hearing aids were placed yesterday. Vitals/I&O/Wt Last Vital Signs Temp 99.7 F H 10/29/19 06:22 Pulse 65 10/29/19 06:22 Resp 14 10/29/19 06:22 BP 98/49 10/29/19 06:22 Pulse Ox 94 10/29/19 06:22 10/28/19 10/28/19 10/29/19 14:59 22:59 06:59 Intake Total 950 / 950 3563.127 / 4513.127 612.975 / 5126.102 Output Total 1645 / 1645 505 / 2150 Balance 950 / 950 1918.127 / 2868.127 107.975 / 2976.102 Physical Exam Chest: COMMONS NORMALS: normal inspection of the chest (Chest wall is stable. Appropriate tubes are in position. Wound VAC remains intact.) Resp: COMMON NORMALS: clear to auscultation bilaterally (Good breath sounds bilaterally.) AUSCULTATION: clear to auscultation bilaterally (Good breath sounds bilaterally.) Cardio: COMMON NORMALS: regular rhythm, S1 normal heart sound present, No murmurs present (Cardio) and No rub (Cardio) (Can hear some rub from the chest tubes himself) RHYTHM: regular rhythm HEART SOUNDS: S1 normal heart sound present Extremity: GENERAL: Yes edema OTHER: Bilateral lower extremity edema 1+ to 2+ consistent with third spacing. Urinary Catheter Management^: Sellers: Cath Placed During This Visit: yes Reason for Continuing Indwelling Catheter: Accurate Measurement of Urinary Output in Critically Ill Patients Urinary Catheter Date of Insertion: 10/28/19 Urinary Catheter Time of Insertion: 07:00 Data : 10/29/19 04:45 10/29/19 04:45 A&P Assessment and plan (1) Status post aortic valve replacement with bioprosthetic valve during current hospitalization: Postop day #1 status post AVR with a 21 mm pericardial tissue valve Plan: Aspirin 81 mg daily Lovenox 40 mg daily CBC, BMP, chest x-ray in a.m. We will need to diurese though I think it is a bit early due to third spacing. May begin weaning ventilator though he does need to have his FiO2 lower. Status: Acute Attestations Medical Necessity Statement*: Postop day #1 status post AVR Time Spent in Patient Care: 16 - 35 minutes Coding Level of Care Code Acute Packing Machine Can Feeder for Madhu Rojas Diagnoses Status post aortic valve replacement with bioprosthetic valve during current hospitalization Z95.3
[2019-10-29] MEDS: enoxaparin 40 mg/0.4 mL Syringe SUBCUT (07:30)
--- NOTE | 2019-10-29 07:30 | PC.NURSE ---
Received report from SARAH Abad. Propofol weaned down for weaning of ETT. Pt agitated, he is thumping on sides of bed, throwing his legs in the air, and scoots himself down in the bed. We have repositioned and lifted him up in bed twice since starting report. DERRICK salamanca at 43. Ventilator on SIMV.
[2019-10-29] MEDS: aspirin 81 mg Chew Tablet PO (07:43)
[2019-10-29] MEDS: oxyCODONE-APAP 5-325 mg Tablet PO (07:44)
--- NOTE | 2019-10-29 08:38 | PC.NURSE ---
Propofol and Levophed off. Fentanyl and Oxycodone admin for pain. Pt resting with eyes closed intermittently. Intermittently, he continues to thump on side of bed, kick his right leg around, pulled at chest tubes and attempt to extubate himself. Pt has had repeated instructions and explanations on not to pull tubes, we are progressing on the vent weaning. P frowns clenches his fists while he shakes his head no .
[2019-10-29] MEDS: pantoprazole 40 mg SDV IVP (08:54)
[2019-10-29] MEDS: chlorhexidine gluconate 0.12% Btl 473 mL 15 ML MUCOUS MEM ×2 (08:55→18:35)
--- NOTE | 2019-10-29 09:41 | PC.NURSE ---
Heart rhythm sinus, rate dropping to [address] Fine notified via phone.
[2019-10-29 09:45] LABS: Blood Gas Allen Test Pos; Blood Gas Sample Type Arterial; Carboxyhemoglobin 0.7 %THgb (0.4-20.1); HGB O2 Sat 98.6 % (95-100); Ionized Calcium Level - ABG 1.1 mmol/L (1.1-1.4); Methemoglobin 0.9 % (0.4-1.5)
[2019-10-29 09:45] LABS: ABG PCO2 40.6 mmHg (35-45); ABG PH Result 7.31 (7.35-7.45); Arterial Blood Gas Hematocrit 29.5 % (42-52); Base Excess ABG -5.8 mmol/L (-2.0-2.0); Blood Gas Allen Test Pos; Blood Gas Sample Type Arterial; Carboxyhemoglobin 0.6 %THgb (0.4-20.1); HCO3 ABG 20.2 mmol/L (22-26); HGB O2 Sat 98.4 % (95-100); Methemoglobin 0.9 % (0.4-1.5); Oxygen Saturation ABG 99.9; Potassium Level - ABG 5.2 mmol/L (3.5-5.0); Total Hemoglobin 9.6 g/dL (14-18)
[2019-10-29 09:45] LABS: Blood Gas Allen Test Pos; Blood Gas Sample Type Arterial; Carboxyhemoglobin 0.5 %THgb (0.4-20.1); HGB O2 Sat 98.7 % (95-100); Ionized Calcium Level - ABG 1.1 mmol/L (1.1-1.4); Methemoglobin 0.6 % (0.4-1.5); Oxygen Saturation ABG 99.8; Total Hemoglobin 13.4 g/dL (14-18)
[2019-10-29 09:45] LABS: ABG PCO2 39.8 mmHg (35-45); ABG PH Result 7.34 (7.35-7.45); Arterial Blood Gas Hematocrit 30.5 % (42-52); Base Excess ABG -4.3 mmol/L (-2.0-2.0); Blood Gas Allen Test Pos; Blood Gas Sample Type Arterial; Carboxyhemoglobin 0.6 %THgb (0.4-20.1); HCO3 ABG 21.2 mmol/L (22-26); HGB O2 Sat 98.5 % (95-100); Ionized Calcium Level - ABG 1.1 mmol/L (1.1-1.4); Methemoglobin 0.9 % (0.4-1.5); Potassium Level - ABG 5.2 mmol/L (3.5-5.0); Total Hemoglobin 9.9 g/dL (14-18)
[2019-10-29 09:45] LABS: Arterial Blood Gas Hematocrit 31.9 % (42-52); Blood Gas Allen Test Pos; Blood Gas Sample Type Arterial; Carboxyhemoglobin 0.6 %THgb (0.4-20.1); HGB O2 Sat 99.4 % (95-100); Methemoglobin 0.5 % (0.4-1.5); Total Hemoglobin 10.4 g/dL (14-18)
[2019-10-29 09:45] LABS: Arterial Blood Gas Hematocrit 26.1 % (42-52); Blood Gas Allen Test Pos; Blood Gas Sample Type Arterial; Carboxyhemoglobin 0.8 %THgb (0.4-20.1); HGB O2 Sat 98.1 % (95-100); Ionized Calcium Level - ABG 1.2 mmol/L (1.1-1.4); Methemoglobin 1.2 % (0.4-1.5); Total Hemoglobin 8.5 g/dL (14-18)
[2019-10-29 09:45] LABS: Arterial Blood Gas Hematocrit 27.2 % (42-52); Blood Gas Allen Test Pos; Blood Gas Sample Type Arterial; Carboxyhemoglobin 0.7 %THgb (0.4-20.1); HGB O2 Sat 98.8 % (95-100); Ionized Calcium Level - ABG 1.2 mmol/L (1.1-1.4); Methemoglobin 0.9 % (0.4-1.5); Total Hemoglobin 8.9 g/dL (14-18)
[2019-10-29 09:45] LABS: Arterial Blood Gas Hematocrit 25.5 % (42-52); Blood Gas Allen Test Pos; Blood Gas Sample Type Arterial; Carboxyhemoglobin 0.7 %THgb (0.4-20.1); HGB O2 Sat 99.1 % (95-100); Ionized Calcium Level - ABG 1.4 mmol/L (1.1-1.4); Methemoglobin 0.9 % (0.4-1.5); Total Hemoglobin 8.3 g/dL (14-18)
[2019-10-29 09:45] LABS: Arterial Blood Gas Hematocrit 29.7 % (42-52); Blood Gas Allen Test Pos; Blood Gas Sample Type Arterial; Carboxyhemoglobin 0.6 %THgb (0.4-20.1); Methemoglobin 0.7 % (0.4-1.5); Total Hemoglobin 9.7 g/dL (14-18)
[2019-10-29 09:45] LABS: Arterial Blood Gas Hematocrit 29.3 % (42-52); Blood Gas Allen Test Pos; Blood Gas Sample Type Arterial; Carboxyhemoglobin 0.7 %THgb (0.4-20.1); HGB O2 Sat 99.1 % (95-100); Methemoglobin 0.6 % (0.4-1.5); Total Hemoglobin 9.6 g/dL (14-18)
[2019-10-29 09:45] LABS: Blood Gas Allen Test Pos; Blood Gas Sample Type Arterial; Carboxyhemoglobin 0.7 %THgb (0.4-20.1); HGB O2 Sat 99.2 % (95-100); Methemoglobin 0.6 % (0.4-1.5); Total Hemoglobin 9.5 g/dL (14-18)
[2019-10-29 09:45] LABS: ABG PCO2 39.6 mmHg (35-45); ABG PH Result 7.37 (7.35-7.45); Arterial Blood Gas Hematocrit 25.7 % (42-52); Base Excess ABG -2.1 mmol/L (-2.0-2.0); Blood Gas Allen Test Pos; Blood Gas Sample Type Arterial; Carboxyhemoglobin 0.8 %THgb (0.4-20.1); HGB O2 Sat 98.2 % (95-100); Ionized Calcium Level - ABG 1.1 mmol/L (1.1-1.4); Methemoglobin 1.1 % (0.4-1.5); Potassium Level - ABG 5.1 mmol/L (3.5-5.0); Total Hemoglobin 8.4 g/dL (14-18)
--- NOTE | 2019-10-29 10:55 | PC.NURSE ---
Pt extubated. OG removed. Pt tolerating well.3lpm/NC
--- NOTE | 2019-10-29 11:00 | PC.NURSE ---
Right femoral arterial line removed Pressure held until hemostasis obtained. NO hematoma or bleeding noted. Pt tolerated very well. Pt instructed to keep leg still, pt verbalized understanding. See Hemodynamic flowsheet for VS and POst cath flowsheet for site observations.
[2019-10-29] MEDS: ondansetron 2 mg/ML SDV 2 mL 4 MG IVP (12:44)
[2019-10-29] MEDS: FUROsemide 10 mg/mL SDV 2mL 20 MG IVP (13:20)
--- NOTE | 2019-10-29 13:45 | PC.NURSE ---
John vinson removed. cath tip intact. Cordis removed. Cath tip intact. Pressure held until hemostasis obtained. Central line kit and [place] View Contour Shield dressing applied to cnetral line, which was directly above Cordis.
--- NOTE | 2019-10-29 17:00 | PC.NURSE ---
Pt OOB for the first time afer surgery. PT at bedside. Pt did very well, pushing up with his legs. To chair at bedside.
[2019-10-29 17:04] LABS: Glucose Point of Care 95 mg/dL (70-110)
[2019-10-29 19:00] LABS: Glucose Point of Care 118 mg/dL (70-110)
[2019-10-29 19:00] LABS: Glucose Point of Care 97 mg/dL (70-110)
[2019-10-29 19:00] LABS: Glucose Point of Care 108 mg/dL (70-110)
[2019-10-29 19:00] LABS: Glucose Point of Care 112 mg/dL (70-110)
[2019-10-29 19:00] LABS: Glucose Point of Care 102 mg/dL (70-110)
[2019-10-29 19:00] LABS: Glucose Point of Care 114 mg/dL (70-110)
[2019-10-29 19:00] LABS: Glucose Point of Care 93 mg/dL (70-110)
[2019-10-29 19:00] LABS: Glucose Point of Care 128 mg/dL (70-110)
[2019-10-29 19:00] LABS: Glucose Point of Care 92 mg/dL (70-110)
[2019-10-29 19:00] LABS: Glucose Point of Care 100 mg/dL (70-110)
[2019-10-29 19:00] LABS: Glucose Point of Care 101 mg/dL (70-110)
[2019-10-29 19:00] LABS: Glucose Point of Care 113 mg/dL (70-110)
[2019-10-29 19:00] LABS: Glucose Point of Care 104 mg/dL (70-110)
--- NOTE | 2019-10-29 19:00 | PC.NURSE ---
Pt back to bed, with 2 assist. Pt has strong ability to push up with his legs. Sternal precautions reinforced, Pt verbalized understanding.
[2019-10-29 21:40] LABS: Glucose Point of Care 127 mg/dL (70-110)
[2019-10-29 23:07] LABS: Glucose Point of Care 119 mg/dL (70-110)
[2019-10-30] VITALS (26 sets, daily range): BP systolic 89–119; BP diastolic 61–79; PULSE 67–127; RESP 15–27; TEMP 36.8–36.9; O2SAT 92–97
[2019-10-30 01:20] LABS: Glucose Point of Care 93 mg/dL (70-110)
[2019-10-30 05:34] LABS: Basophils % 0.2 %; Eosinophils % 0.2 %; Hematocrit 29.2 % (42.0-52.0); Lymphocytes # 1.8 10^3/uL (0.8-4.8); Lymphocytes % 14.1 %; Mean Corpuscular HGB Conc 34.2 g/dL (30.0-36.0); Mean Corpuscular Hemoglobin 31.4 pg (28.0-34.0); Mean Corpuscular Volume 91.8 fL (80-94); Mean Platelet Volume 10.8 fL (7.4-10.4); Monocytes % 7.7 %; Neutrophils # 9.8 10^3/uL (1.8-7.7); Neutrophils % 77.3 %; Nucleated Red Blood Cells % 0 %; Platelet Count 83 10^3/cmm (130-400); Red Blood Count 3.18 10^6/uL (4.1-5.3); Red Cell Distribution Width 14.9 % (12.1-15.1); White Blood Count 12.6 10^3/uL (4.0-10.0)
--- NOTE | 2019-10-30 05:56 | P.PN_ITS ---
Subjective Subjective: Interval history: Postop day #2 status post AVR. Up in chair on rounds. Looks quite good. Diuresed almost 1 L past 24 hours. Chest tube output 270 cc past 24 hours. White count has drifted up to 12,000 afebrile. Platelet count down to 80,000 Chest x-ray without infiltrate or effusions. Modest cardiomegaly. Vitals/I&O/Wt Last Vital Signs Temp 98.2 F 10/30/19 00:00 Pulse 72 10/30/19 05:00 Resp 27 H 10/30/19 05:00 BP 97/63 10/30/19 05:00 Pulse Ox 96 10/30/19 05:00 10/29/19 10/29/19 10/30/19 14:59 22:59 06:59 Intake Total 538.9 / 538.9 447.5 / 986.4 Output Total 395 / 395 1540 / 1935 Balance 143.9 / 143.9 -1092.5 / -948.6 Physical Exam Chest: COMMONS NORMALS: normal inspection of the chest (Sternum stable. Drains in position. Wound VAC working well.) Resp: COMMON NORMALS: normal respiratory effort and clear to auscultation bilaterally AUSCULTATION: clear to auscultation bilaterally Cardio: COMMON NORMALS: regular rate, regular rhythm, S1 normal heart sound present and No murmurs present (Cardio) RATE: regular rate RHYTHM: regular rhythm HEART SOUNDS: S1 normal heart sound present Extremity: GENERAL: Yes edema (Still 1+ edema bilaterally) Urinary Catheter Management^: Sellers: Cath Placed During This Visit: yes Reason for Continuing Indwelling Catheter: Accurate Measurement of Urinary Output in Critically Ill Patients Urinary Catheter Date of Insertion: 10/28/19 Urinary Catheter Time of Insertion: 07:00 Data : 10/30/19 05:15 10/29/19 04:45 A&P Assessment and plan (1) Status post aortic valve replacement with bioprosthetic valve during current hospitalization: Postop day #2 status post AVR. Thrombocytopenia. Mild leukocytosis. Afebrile. Plan: Will continue with diuresis with 1 dose of Lasix this morning. DC A-line. Will hold Lovenox due to thrombocytopenia. Chemistries are still pending this morning. CBC, BMP, chest x-ray in a.m. Status: Acute Attestations Medical Necessity Statement*: Postop day #2 status post AVR Time Spent in Patient Care: 16 - 35 minutes Coding Level of Care Code Acute Enforcement Officer for Madhu Fwchris Exam Expanded Problem Focused Diagnoses Status post aortic valve replacement with bioprosthetic valve during current hospitalization Z95.3
[2019-10-30 05:58] LABS: Anion Gap 15.1 (5-19); Blood Urea Nitrogen 20 mg/dL (8-23); Calcium 8.6 mg/dL (8.5-10.5); Carbon Dioxide 21 mmol/L (22-29); Chloride 105 mmol/L (98-107); Glomerular Filtration Rate 66.4 mL/min (90-130); Glucose 117 mg/dL (65-115); Osmolality Calculated 282 mOsm/kg (285-295); Potassium 4.1 mmol/L (3.5-5.1); Sodium 137 mmol/L (136-145)
--- NOTE | 2019-10-30 06:00 | XR_ITS ---
WS: [id number] CHEST XRAY TECHNIQUE: Portable chest. CLINICAL INFORMATION: POD #2 status post AVR COMPARISON: October 29, 2019 FINDINGS: . Heart: Cardiomegaly with sternotomy. Right IJ sheath. Lungs: Lungs are well aerated. No acute pulmonary infiltrates. No focal pneumonia. Bones: Normal visualized bony structures. XR/XR chest 1V portable [id number] IMPRESSION: 1. Postoperative sternotomy with aVR. 2. Right IJ sheath in place. 3. Stable cardiomegaly. 4. Lungs well aerated.
[2019-10-30] MEDS: FUROsemide 10 mg/mL SDV 2mL 20 MG IVP (06:17)
[2019-10-30] MEDS: sodium chloride 0.45% 1,000 ML 75 ML IV (06:18)
[2019-10-30 07:59] LABS: Glucose Point of Care 125 mg/dL (70-110)
[2019-10-30] MEDS: aspirin 81 mg Chew Tablet PO (10:49)
[2019-10-30 12:35] LABS: Glucose Point of Care 130 mg/dL (70-110)
[2019-10-30] MEDS: vancomycin 1,000 MG in sodium chloride 0.9% 250 ML 250 MG IV (13:10)
[2019-10-30 17:07] LABS: Glucose Point of Care 135 mg/dL (70-110)
[2019-10-30] MEDS: docusate sodium 100 mg Capsule PO (18:10)
[2019-10-30] MEDS: sodium chloride 0.45% 1,000 ML 30 ML IV (18:17)
[2019-10-30 20:46] LABS: Glucose Point of Care 140 mg/dL (70-110)
--- NOTE | 2019-10-30 21:40 | PC.NURSE ---
AFIB 2116: Patient went into AFIB with a rate of 140-160. Dr. Fine notified. Amiodarone IV ordered per protocol. Patient is asymptomatic and up in the chair.
--- NOTE | 2019-10-30 23:59 | ECG_ITS ---
Measurements Intervals [place] Rate: 140 P: WI: 0 QRS: -49 QRSD: 125 T: 50 QT: 325 QTc: 497 ATRIAL FIBRILLATION WITH RAPID VENTRICULAR RESPONSE RIGHT BUNDLE BRANCH BLOCK LEFT ANTERIOR FASCICULAR BLOCK Compared to ECG 10/29/2019 05:24:31 Right bundle-branch block now present Left anterior fascicular block now present Sinus rhythm no longer present First degree AV block no longer present Intraventricular conduction delay no longer present T-wave abnormality no longer present Electronically Signed On 11-01-2019 18:17:19 CDT by Kelle Carter M.D. [id number]
[2019-10-31] VITALS (28 sets, daily range): BP systolic 95–126; BP diastolic 66–84; PULSE 66–132; RESP 16–34; TEMP 36.6–36.9; O2SAT 90–95
[2019-10-31 04:35] LABS: Basophils % 0.2 %; Eosinophils # 0.1 10^3/uL (0.0-0.8); Eosinophils % 0.6 %; Hematocrit 28.7 % (42.0-52.0); Hemoglobin 9.7 g/dL (11.7-16.6); Lymphocytes # 1.6 10^3/uL (0.8-4.8); Lymphocytes % 14.7 %; Mean Corpuscular HGB Conc 33.8 g/dL (30.0-36.0); Mean Corpuscular Hemoglobin 31.3 pg (28.0-34.0); Mean Corpuscular Volume 92.6 fL (80-94); Mean Platelet Volume 10.9 fL (7.4-10.4); Monocytes # 0.9 10^3/uL (0.2-0.9); Monocytes % 8.5 %; Neutrophils % 75.4 %; Nucleated Red Blood Cells % 0 %; Platelet Count 75 10^3/cmm (130-400); Red Cell Distribution Width 14.4 % (12.1-15.1); White Blood Count 10.6 10^3/uL (4.0-10.0)
[2019-10-31 04:56] LABS: Anion Gap 12.9 (5-19); Blood Urea Nitrogen 19 mg/dL (8-23); Calcium 8.6 mg/dL (8.5-10.5); Carbon Dioxide 25 mmol/L (22-29); Chloride 99 mmol/L (98-107); Glomerular Filtration Rate 66.4 mL/min (90-130); Glucose 134 mg/dL (65-115); Osmolality Calculated 274 mOsm/kg (285-295); Potassium 3.9 mmol/L (3.5-5.1); Sodium 133 mmol/L (136-145)
[2019-10-31] MEDS: docusate sodium 100 mg Capsule PO ×2 (05:12→21:18)
[2019-10-31] MEDS: bisacodyl 5 mg Tablet PO (05:12)
[2019-10-31] MEDS: lactulose oral liq 20 gm/30 mL UDC 30 GM PO (05:36)
--- NOTE | 2019-10-31 05:48 | PM.PN ---
Subjective Subjective: Interval history: Postop day #3 status post AVR. He did develop brief episodes of A. fib and was treated with IV amiodarone per protocol. He has converted back to sinus rhythm. It was noted he did have an impressive nearly 3-second pause as he converted from A. fib to sinus rhythm. He does appear to have a first-degree AV block now. As well, his platelet count continues to drift down and is now at 75,000. Chest tube output 85 cc past 24 hours. Chest x-ray is clear. H&H is stable. White count has drifted back down now to 10,600. He has no complaints. Vitals/I&O/Wt Last Vital Signs Temp 97.9 F 10/31/19 03:00 Pulse 68 10/31/19 05:00 Resp 20 H 10/31/19 05:00 BP 99/66 10/31/19 05:00 Pulse Ox 94 10/31/19 05:00 10/30/19 10/30/19 10/31/19 14:59 22:59 06:59 Intake Total 460 / 460 1378.75 / 1838.75 207 / 2045.75 Output Total 1075 / 1075 1385 / 2460 Balance 460 / 460 303.75 / 763.75 -1178 / -414.25 Physical Exam Chest: COMMONS NORMALS: normal inspection of the chest (Wound VAC dressing is in place. Sternum is stable.) Resp: COMMON NORMALS: normal respiratory effort, No use of accessory muscles and clear to auscultation bilaterally AUSCULTATION: clear to auscultation bilaterally Cardio: COMMON NORMALS: regular rate, regular rhythm and S1 normal heart sound present RATE: regular rate RHYTHM: regular rhythm HEART SOUNDS: S1 normal heart sound present Urinary Catheter Management^: Sellers: Cath Placed During This Visit: yes Reason for Continuing Indwelling Catheter: Accurate Measurement of Urinary Output in Critically Ill Patients Urinary Catheter Date of Insertion: 10/28/19 Urinary Catheter Time of Insertion: 07:00 Data : 10/31/19 03:50 10/31/19 03:50 A&P Assessment and plan (1) Status post aortic valve replacement with bioprosthetic valve during current hospitalization: Postop day #3 status post AVR. Brief A. fib now back to sinus rhythm with first-degree AV block I will discontinue IV amiodarone. I will request Dr. Ramirez's opinion as how to proceed medically in regards to this. I will plan to discontinue chest tubes later today, though the drop in platelet count is a bit concerning. Overall, however, he looks quite good. Status: Acute Attestations Medical Necessity Statement*: Postop day #3 status post AVR Time Spent in Patient Care: 16 - 35 minutes Coding Level of Care Code Acute Accounting Instructor for Catg Fwd Diagnoses Status post aortic valve replacement with bioprosthetic valve during current hospitalization Z95.3
--- NOTE | 2019-10-31 06:00 | XR_ITS ---
WS: [id number] CHEST XRAY TECHNIQUE: Portable chest. CLINICAL INFORMATION: POD#3 s/p AVR (diuresing) COMPARISON: October 30, 2019 FINDINGS: Right IJ sheath in place. Sternotomy. AVR. Heart: Cardiomegaly. Lungs: Moderate chronic emphysematous changes. No acute-appearing pulmonary infiltrates. Trace bilate ral pleural fluid. No focal pneumonia. Bones: Normal visualized bony structures. XR/XR chest 1V portable [id number] IMPRESSION: 1. Cardiomegaly with sternotomy and aVR. 2. Trace pleural fluid. No focal pneumonia. 3. Right IJ sheath.
[2019-10-31] MEDS: aspirin 81 mg Chew Tablet PO (08:18)
[2019-10-31 08:59] LABS: Glucose Point of Care 151 mg/dL (70-110)
[2019-10-31 11:26] LABS: Glucose Point of Care 120 mg/dL (70-110)
[2019-10-31 11:30] LABS: LAB Peripheral Smear Sent for Review
[2019-10-31 12:15] LABS: Alanine Aminotransferase 23 U/L (0-41); Aspartate Amino Transferase 36 U/L (0-40); Gamma Glutamyl Transferase 22 U/L (8-61); Lactate Dehydrogenase 371 U/L (135-225)
[2019-10-31 12:31] LABS: Vitamin B12 345 pg/mL (232-1245)
--- NOTE | 2019-10-31 13:24 | P.CONIM_ITS ---
Providers/Reason For Consult Consulting Physican/Specialty*: Mirna Antonio MD, Hospitalist Reason for Consult*: Thrombocytopenia Attending Physician: Bassam Fine MD Primary Care Provider: Markie Snell History of Present Illness History of Present Illness Georges David is a 69 year old male with PMHx of Severe aortic stenosis, HTN, NIDDM type II, Hyperlipidemia, presented for scheduled aortic valve replacement secondary to aforementioned severe aortic stenosis that was done by Dr. Fine on 10/28/19 which was slightly complicated by preceded by some hemodynamic instability that improved with discontinuation of infusions and administration of IV steroids and Benadryl. Patient then received 2 units of PRBCs and 2 units of platelets and transfer to ICU following completion of procedure. Patient seems to have done well from a postsurgical standpoint and was successfully extubated on 10/28 with stability in his respiratory status thereafter. He has been noted to be anemic though hemoglobin has remained stable in the 9-10 range with no noted acute bleeding. However he has had a 50% reduction in his platelet count in the past 48 hours with unclear etiology hence hospitalist consult. Patient's previous baseline platelet count was within normal limits as was his hemoglobin. In light of having received glycerin-containing IV fluid there is some concern that this is contributing to thrombocytopenia. It is worth noting the patient has also received heparin as well as some anticoagulation with Lovenox, also received vancomycin for perioperative prophylaxis all of which would contribute to drop in platelet count. He has been on antiplatelet therapy with aspirin 81 mg daily. He has no underlying liver disease, no known history of alcohol abuse, no history of known immunosuppression which makes this picture highly suspicious for an acute event. Patient denies having had any underlying bleeding disorder, no noted issues with hematuria or blood in his stool. He has not had any overt bleeding during his hospital stay so far outside of chest tube output which is decreasing and has not been higher than expected. Clinically he does not appear to have any petechiae, ecchymosis, jaundice. Plan is for removal of chest tubes pending clear picture of thrombocytopenia to mitigate risk of potential bleeding. Review of Systems Const: Reports: fatigue; Denies: fever(s) or chills Eyes: Denies: change in vision ENMT: Denies: dry mouth Card: Reports: swelling of feet/ankles; Denies: chest pain or lightheadedness Resp: Denies: dyspnea, productive cough or non-productive cough GI: Denies: abdominal pain, nausea, vomiting, hematemesis or hematochezia : Denies: dysuria, urinary frequency or hematuria Musc: Denies: back pain Skin/Breast: Denies: rash Neuro: Reports: weakness in extremities; Denies: numbness in extremities Psych: Denies: anxiety [place]/Lymph: Denies: easy bruising, easy bleeding or petechiae Meds/Allergies Home Medications and Allergies Home Medications Medication Instructions Recorded Confirmed Last Taken Type amlodipine 5 mg tablet 5 mg PO DAILY 07/31/19 10/28/19 10/27/19 History aspirin 325 mg tablet 325 mg PO DAILY 07/31/19 10/28/19 10/26/19 History atorvastatin 40 mg tablet 40 mg PO DAILY 07/31/19 10/28/19 10/27/19 History benazepril 20 mg tablet 10 mg PO DAILY 07/31/19 10/28/19 10/27/19 History fluticasone propionate 50 1 spray INTRANASAL DAILY 07/31/19 10/28/19 10/27/19 History mcg/actuation nasal spray,suspension metformin 1,000 mg tablet 500 mg PO BID tab 07/31/19 10/28/19 10/27/19 History aspirin [Aspirin Low Dose] 81 mg PO DAILY 10/25/19 10/28/19 10/26/19 History Allergies Allergy/AdvReac Type Severity Reaction Status Date / Time Penicillins Allergy Unknown Unknown Verified 10/25/19 08:04 Current Medications Current Medications Generic Name Dose Route Start Last Admin Trade Name Freq PRN Reason Stop Dose Admin Aspirin 81 mg 10/29/19 09:00 10/31/19 08:18 Aspirin Chewable PO 81 mg DAILY JUSTINO Administration Bisacodyl 5 mg 10/30/19 17:31 10/31/19 05:12 Dulcolax PO 5 mg Q6H PRN Administration COLD SYMPTOMS Chlorhexidine Gluconate 15 ml 10/28/19 18:00 10/31/19 08:42 Perigard MUCOUS MEM Not Given BID JUSTINO Docusate Sodium 100 mg 10/30/19 17:31 10/31/19 05:12 Colace PO 100 mg BID PRN Administration CONSTIPATION Fentanyl 50 mcg 10/28/19 16:46 10/29/19 07:29 Sublimaze IVP 50 mcg Q1H PRN Administration SEVERE PAIN Albumin Human 12.5 gm in 250 mls @ 600 mls/hr 10/28/19 16:46 10/29/19 20:47 Albumin IV Infused PRN PRN Infusion For CVP < 4 or SBP< 90 Propofol 1,000 mg in 100 mls @ 0 mls/hr 10/28/19 16:46 10/29/19 07:34 Diprivan IV 0 mcg/kg/min .Q0M JUSTINO 0 mls/hr Titration Protocol Per Protocol Sodium Chloride 1,000 mls @ 30 mls/hr 10/28/19 18:00 10/31/19 06:00 Sodium Chloride 0.45% IV 30 mls/hr .Q24H JUSTINO Infusion Insulin Aspart 0 unit 10/30/19 08:00 10/31/19 11:25 Novolog SUBCUT Not Given WM&BEDTIME JUSTINO Protocol Lactulose 30 gm 10/30/19 17:31 10/31/19 05:36 Constulose PO 30 gm QID PRN Administration CONSTIPATION Ondansetron HCl 4 mg 10/28/19 16:46 10/29/19 12:44 Zofran IVP 4 mg Q6H PRN Administration NAUSEA Oxycodone/Acetaminophen 1 - 2 tab 10/28/19 16:46 10/29/19 07:44 Percocet 5-325 Mg PO 2 tab Q6H PRN Administration MILD TO MODERATE PAIN PFSH Acute PFSH: Medical History Aortic stenosis, severe Heart murmur HTN (hypertension) Well controlled. Continue current regimen. Hyperlipemia Renal dysfunction Baseline creatinine 1.3. Patient has been gently Hydrated with IV fluid. Surgical History Status post aortic valve replacement with bioprosthetic valve during current hospitalization Social History Smoking and tobacco status: former smoker Alcohol intake: current Alcohol intake frequency: other Household members: spouse Marital status: service: Yes Current occupational status: retired History of recent travel: No Vitals/I&O/Wt Last Vital Signs Temp 98.4 F 10/31/19 10:00 Pulse 69 05/21/20 10:00 Resp 19 H 10/31/19 11:00 BP 106/70 10/31/19 11:00 Pulse Ox 95 10/31/19 11:00 10/30/19 10/31/19 10/31/19 22:59 06:59 14:59 Intake Total 1378.75 / 1838.75 848.002 / 2686.752 240 / 240 Output Total 1075 / 1075 1385 / 2460 Balance 303.75 / 763.75 -536.998 / 226.752 240 / 240 Physical Exam Const: COMMON NORMALS: no acute distress, patient oriented x3 and alert GENERAL APPEARANCE: cooperative and comfortable ORIENTATION/CONSCIOUSNESS: Yes awake HENMT: COMMON NORMALS: normocephalic, atraumatic and moist oral mucous membranes HEAD & SCALP: normocephalic and atraumatic GENERAL EAR: hearing grossly impaired (has hearing aid in place) Laterality: left Eye: COMMON NORMALS: Equal, round and reactive pupils present, EOMs intact bilaterally and conjunctivae normal CONJUNCTIVA: Yes conjunctivae normal PUPIL: Yes Equal, round and reactive pupils present Neck/C-Spine: COMMON NORMALS: full ROM GENERAL: Yes normal visual inspection and Yes trachea midline OTHER: -R central line access Chest: CHEST: Yes Symmetrical chest wall rise OTHER: -sternotomy with wound vac in place -bilateral chest tubes in place Resp: COMMON NORMALS: normal respiratory effort, No retractions and No use of accessory muscles EFFORT & INSPECTION: Yes able to speak in complete sentences, Yes symmetric chest movement and No tachypneic AUSCULTATION: diminished lung sounds OTHER: -on 3 L NC Cardio: COMMON NORMALS: regular rate, regular rhythm, S1 normal heart sound present and S2 normal heart sound present RATE: regular rate RHYTHM: regular rhythm HEART SOUNDS: S1 normal heart sound present and S2 normal heart sound present GI: COMMON NORMALS: Normal to inspection, nondistended, normoactive bowel sounds present, Soft to palpation and non-tender INSPECTION: Yes central obesity PALPATION: Yes Soft to palpation : BLADDER/KIDNEY EXAM: Yes catheter in place Catheter type (Male): urethral Extremity: COMMON NORMALS: normal to inspection and full ROM OTHER: -1 + pitting edema of bilateral LEs Neuro: COMMON NORMALS: patient oriented x3, moves all extremities, no focal motor deficits and no sensory deficits noted SENSORIUM/ORIENTATION: Yes alert Psych: COMMON NORMALS: mental status grossly normal, Normal thought process present, cooperative, normal affect and speech normal SPEECH: Yes normal speech THOUGHT PROCESS: Normal thought process present Skin: COMMON NORMALS: no rashes or lesions noted, no jaundice, no petechiae and no mottling GENERAL SKIN EXAM: no rashes or lesions noted, no ecchymo, no jaundice and no petechiae Urinary Catheter Management^: Sellers: Cath Placed During This Visit: yes Urethral Indwelling: Yes Reason for Continuing Indwelling Catheter: Accurate Measurement of Urinary Output in Critically Ill Patients Urinary Catheter Date of Insertion: 10/28/19 Urinary Catheter Time of Insertion: 07:00 A&P Assessment and plan (1) Status post aortic valve replacement with bioprosthetic valve during current hospitalization: -POD # 3, done by Dr. Fine -s/p extubation (10/28) and respiratory status is stable, supplemental oxygen as needed -has bilateral chest tubes in place, plan for removal once clear on thrombocytopenia -developed atrial fibrillation with RVR overnight, responded to IV Amiodarone, now in sinus rhythm with noted first degree AV block Status: Acute (2) Aortic stenosis, severe: Status: Chronic (3) Thrombocytopenia: -Baseline platelet count within normal limits, within the past 48 hours he has had a 50% reduction in his platelet count, unclear etiology but could be related to recent surgery, drug-induced in light of antiplatelet therapy, glyc mohamud-containing solution, vancomycin used for perioperative prophylaxis of which he received 3 doses, last given today -Peripheral smear ordered -vitamin B12 low normal, LFTs wnl, no hx of liver disease -no hx of immunosuppression, acute infection, no hx of EtOH abuse -noted anemia and elevated INR, PT, elevated LDH -would hold off on removal of chest tubes until further workup and clear trend in platelet count to minimize risk of bleeding -no noted petechiae, ecchymosis on examination, no apparent bleeding outside of chest tube drainage -is currently on ASA 81 mg daily, previously on 325 mg; has received some AC with Lovenox and heparin during surgery which is now discontinued. Would avoid further anticoagulation in light of thrombocytopenia and anemia -would avoid platelet transfusion unless acute bleeding, further decrease in platelets Status: Acute (4) Acute blood loss anemia: -baseline Hg wnl -noted normocytic anemia post-op, received transfusion of PRBCs post-op; Hg appears stable Status: Acute (5) HTN (hypertension): -VSS; continue to monitor Status: Acute Qualifiers: Hypertension type: essential hypertension Qualified Code(s): I10 - Essential (primary) hypertension Additional A&P Information -working well with therapy -has Sellers catheter in place, assess daily for removal -Hyperlipidemia; on statin -NIDDM type II, Accucheks, ISS, cardiac consistent carb diet, hypoglycemia precautions -fall precautions -DVT ppx with SCDs, no AC due to anemia, thrombocytopenia -Dispo: home with -Code status: FULL code Thank you for this consult, will continue to follow along with you Consult Attestations Medical Necessity Statement: Patient requires hospitalization for continued post-op management status post aortic valve replacement with subsequent anemia and thrombocytopenia Time Spent in Patient Care: Greater than 35 minutes (>than 50% of time spent in counselling and/or direct pt care on unit) . Coding Level of Care Code Acute Organisational Psychologist for Madhu Rojas Diagnoses Status post aortic valve replacement with bioprosthetic valve during current hospitalization Z95.3 Aortic stenosis, severe I35.0 Thrombocytopenia D69.6 Acute blood loss anemia D62 HTN (hypertension) I10 Hypertension type: essential hypertension
[2019-10-31 18:26] LABS: Glucose Point of Care 153 mg/dL (70-110)
--- NOTE | 2019-10-31 19:38 | PM.CONSULT ---
Providers/Reason For Consult Consulting Physican/Specialty*: Cardiology Reason for Consult*: Status post AVR Postop A. fib Sick sinus syndrome Attending Physician: Bassam Fine MD Primary Care Provider: Markie Snell History of Present Illness History of Present Illness Georges David is a 69 year old male past medical history significant for severe aortic stenosis, hypertension, [id number] diabetes mellitus underwent aortic valve replacement with Dr. Fine on the 18th of this month. In the postoperative course patient had some hemodynamic instability treated with pressors. Patient later developed atrial fibrillation with rapid ventricular response and thrombocytopenia. IV amiodarone was given which was discontinued upon significant 3-second pause. Currently patient is in A. fib. There was significant drop in platelets closely monitored on regular basis. Review of Systems Const: Reports: fatigue; Denies: fever(s) or chills Eyes: Denies: change in vision ENMT: Denies: dry mouth Card: Reports: swelling of feet/ankles; Denies: chest pain or lightheadedness Resp: Denies: dyspnea, productive cough or non-productive cough GI: Denies: abdominal pain, nausea, vomiting, hematemesis or hematochezia : Denies: dysuria, urinary frequency or hematuria Musc: Denies: back pain Skin/Breast: Denies: rash Neuro: Reports: weakness in extremities; Denies: numbness in extremities Psych: Denies: anxiety [place]/Lymph: Denies: easy bruising, easy bleeding or petechiae Meds/Allergies Home Medications and Allergies Home Medications Medication Instructions Recorded Confirmed Last Taken Type amlodipine 5 mg tablet 5 mg PO DAILY 07/31/19 10/28/19 10/27/19 History aspirin 325 mg tablet 325 mg PO DAILY 07/31/19 10/28/19 10/26/19 History atorvastatin 40 mg tablet 40 mg PO DAILY 07/31/19 10/28/19 10/27/19 History benazepril 20 mg tablet 10 mg PO DAILY 07/31/19 10/28/19 10/27/19 History fluticasone propionate 50 1 spray INTRANASAL DAILY 07/31/19 10/28/19 10/27/19 History mcg/actuation nasal spray,suspension metformin 1,000 mg tablet 500 mg PO BID tab 07/31/19 10/28/19 10/27/19 History aspirin [Aspirin Low Dose] 81 mg PO DAILY 10/25/19 10/28/19 10/26/19 History Allergies Allergy/AdvReac Type Severity Reaction Status Date / Time Penicillins Allergy Unknown Unknown Verified 10/25/19 08:04 Current Medications Current Medications Generic Name Dose Route Start Last Admin Trade Name Freq PRN Reason Stop Dose Admin Aspirin 81 mg 10/29/19 09:00 10/31/19 08:18 Aspirin Chewable PO 81 mg DAILY JUSTINO Administration Bisacodyl 5 mg 10/30/19 17:31 10/31/19 05:12 Dulcolax PO 5 mg Q6H PRN Administration COLD SYMPTOMS Chlorhexidine Gluconate 15 ml 10/28/19 18:00 10/31/19 18:05 Perigard MUCOUS MEM Not Given BID JUSTINO Docusate Sodium 100 mg 10/30/19 17:31 10/31/19 05:12 Colace PO 100 mg BID PRN Administration CONSTIPATION Fentanyl 50 mcg 10/28/19 16:46 10/29/19 07:29 Sublimaze IVP 50 mcg Q1H PRN Administration SEVERE PAIN Albumin Human 12.5 gm in 250 mls @ 600 mls/hr 10/28/19 16:46 10/29/19 20:47 Albumin IV Infused PRN PRN Infusion For CVP < 4 or SBP< 90 Propofol 1,000 mg in 100 mls @ 0 mls/hr 10/28/19 16:46 10/29/19 07:34 Diprivan IV 0 mcg/kg/min .Q0M JUSTINO 0 mls/hr Titration Protocol Per Protocol Sodium Chloride 1,000 mls @ 30 mls/hr 10/28/19 18:00 10/31/19 06:00 Sodium Chloride 0.45% IV 30 mls/hr .Q24H JUSITNO Infusion Insulin Aspart 0 unit 10/30/19 08:00 10/31/19 18:37 Novolog SUBCUT 4 unit WM&BEDTIME JUSTINO Administration Protocol Lactulose 30 gm 10/30/19 17:31 10/31/19 05:36 Constulose PO 30 gm QID PRN Administration CONSTIPATION Ondansetron HCl 4 mg 10/28/19 16:46 10/29/19 12:44 Zofran IVP 4 mg Q6H PRN Administration NAUSEA Oxycodone/Acetaminophen 1 - 2 tab 10/28/19 16:46 10/29/19 07:44 Percocet 5-325 Mg PO 2 tab Q6H PRN Administration MILD TO MODERATE PAIN PFSH Acute PFSH: Medical History (Updated 10/31/19 @ 19:58 by Azeem Ramirez MD) Aortic stenosis, severe Heart murmur HTN (hypertension) Well controlled. Continue current regimen. Hyperlipemia Renal dysfunction Baseline creatinine 1.3. Patient has been gently Hydrated with IV fluid. Surgical History Status post aortic valve replacement with bioprosthetic valve during current hospitalization Social History Smoking and tobacco status: former smoker Alcohol intake: current Alcohol intake frequency: other Household members: spouse Marital status: service: Yes Current occupational status: retired History of recent travel: No Dietary Habits: Current diet type/program: regular Caffeine: Yes Caffeine intake frequency: coffee Vitals/I&O/Wt Last Vital Signs Temp 98.4 F 10/31/19 16:00 Pulse 78 10/31/19 19:00 Resp 25 H 10/31/19 19:00 BP 113/71 10/31/19 19:00 Pulse Ox 94 10/31/19 19:00 10/31/19 10/31/19 10/31/19 06:59 14:59 22:59 Intake Total 848.002 / 2686.752 240 / 240 240 / 480 Output Total 1385 / 2460 1050 / 1050 Balance -536.998 / 226.752 240 / 240 -810 / -570 Physical Exam Narrative: EXAM NARRATIVE: GENERAL: Patient is alert, awake and oriented x3. Midline scar covered with Band-Aid NECK: No jugular vein distension. HEENT: No cyanosis. No icterus. No pallor. HEART: Regular S1 and S2. No murmur, rub or gallop. LUNGS: Clear to auscultate bilaterally. ABDOMEN: Soft, nontender and nondistended. Positive bowel sounds. No guarding, rebound or tenderness. CENTRAL NERVOUS SYSTEM: Grossly nonfocal. EXTREMITIES: Lower extremities without edema bilaterally. Urinary Catheter Management^: Sellers: Cath Placed During This Visit: yes Urethral Indwelling: Yes Reason for Continuing Indwelling Catheter: Accurate Measurement of Urinary Output in Critically Ill Patients Urinary Catheter Date of Insertion: 10/28/19 Urinary Catheter Time of Insertion: 07:00 A&P Assessment and plan (1) Status post aortic valve replacement with bioprosthetic valve during current hospitalization: Status post AVR day 3. Stable hemodynamically. Chest tube draining. Status: Acute (2) Thrombocytopenia: Today platelets 75,000 continue to monitor Status: Acute (3) HTN (hypertension): Well-controlled. Continue monitor Status: Acute Qualifiers: Hypertension type: essential hypertension Qualified Code(s): I10 - Essential (primary) hypertension (4) Atrial fibrillation: Postop atrial fibrillation patient was started on amiodarone had long more than 3-second pause with first-degree AV block. Amiodarone was stopped. Currently patient is in sinus rhythm. Patient may have underlying conduction abnormality either acquired after valvular surgery due to inflammation. Since he is in sinus rhythm I will monitor him for any further pauses in the night from tomorrow morning we will start patient on p.o. 12.5 mg of metoprolol. Status: Acute Coding Level of Care Code New Pt Acute Sample Mounter for [facility] Fwd Patient Type New History Detailed Exam Detailed Medical Decision Making Moderate Complexity Diagnoses Status post aortic valve replacement with bioprosthetic valve during current hospitalization Z95.3 Thrombocytopenia D69.6 HTN (hypertension) I10 Hypertension type: essential hypertension Atrial fibrillation I48.91
--- NOTE | 2019-10-31 19:43 | PC.NURSE ---
IN HANDOFF REPORT DAY NURSE PASSED ON THAT THERE IS NOW A SMALL EDEMATOUS AREA AFTER CENTRAL LINE WAS REMOVED FROM RIGHT NECK. PRESSURE DRESSING APPLIED. NO BLEEDING NOTED AT THIS TIME, AREA IS NOT NOTED TO BE GROWING AT THIS TIME.
[2019-10-31 21:07] LABS: Glucose Point of Care 128 mg/dL (70-110)
[2019-11-01] VITALS (81 sets, daily range): BP systolic 82–131; BP diastolic 58–109; PULSE 59–162; RESP 15–41; TEMP 36.4–36.8; O2SAT 92–97
--- NOTE | 2019-11-01 03:24 | ECG_ITS ---
Measurements Intervals [place] Rate: 151 P: SC: 0 QRS: -60 QRSD: 130 T: 32 QT: 281 QTc: 447 ATRIAL FLUTTER WITH RAPID VENTRICULAR RESPONSE RIGHT BUNDLE BRANCH BLOCK LEFT ANTERIOR FASCICULAR BLOCK Compared to ECG 10/29/2019 05:24:31 Right bundle-branch block now present Left anterior fascicular block now present Sinus rhythm no longer present First degree AV block no longer present Intraventricular conduction delay no longer present T-wave abnormality no longer present Electronically Signed On 11-01-2019 21:50:24 CDT by Kelle Carter M.D. [email or web address]
--- NOTE | 2019-11-01 03:30 | PC.NURSE ---
DR GUERRA STATED THAT IF PAUSES BEGIN TO STOP AMIO DRIP.
--- NOTE | 2019-11-01 03:30 | PC.NURSE ---
DR CHARLA GUERRA CALLED DUE TO PT HEART RATE GOING BACK AND FORTH TO AFIB AND SINUS RYTHMN. RATE HIGH 170S WHILE IN AFIB. DR GUERRA GAVE ORDER TO GIVE 12.5 MG PO METOPROLOL AND START AMIO AT 1MG IF HEARTRATE DOES NOT BECOME CONTROLLED. PT HAS NO COMPLAINTS OF CHEST PAIN AT THIS TIME OR SHORTNESS OF BREATH.
[2019-11-01] MEDS: metoprolol tartrate 25 mg Tablet 12.5 MG PO (03:38)
--- NOTE | 2019-11-01 03:56 | PC.NURSE ---
PT CONSISTENTLY IN AFIB, AMIO WAS STARTED AT 1MG. PT HAS NOT COMPLAINTS OF CHEST PAIN OR SHORTNESS OF BREATH.
--- NOTE | 2019-11-01 03:59 | PC.NURSE ---
DR GUERRA WAS CONTACTED DUE TO PT HEART RATE SUSTAINING 140S-160S IN AFIB. DR GUERRA SAID TO LET HIM KNOW IN 30 MINUTES IF IS STILL SUSTAINING THAT RATE. PO METOPROLOL WAS GIVEN, PT HAS NO COMPLAINTS. PRESSURE IS CURRENTLY 106/78.
--- NOTE | 2019-11-01 04:02 | PC.NURSE ---
PT COMPLAINED OF RIGHT LEG BEING NUMB AT TIMES. PULSES 3+, WARM, SENSATION IN LEG TO TOUCH IS NORMAL.
--- NOTE | 2019-11-01 04:17 | PC.NURSE ---
PT CONVERTED TO SINUS RYTHMN HEARTRATE HIT 57, AMIO SHUT OFF AT THIS TIME.
[2019-11-01 05:26] LABS: Basophils % 0.1 %; Eosinophils # 0.2 10^3/uL (0.0-0.8); Eosinophils % 1.9 %; Hematocrit 29.2 % (42.0-52.0); Hemoglobin 9.7 g/dL (11.7-16.6); Lymphocytes # 1.5 10^3/uL (0.8-4.8); Lymphocytes % 18.9 %; Mean Corpuscular HGB Conc 33.2 g/dL (30.0-36.0); Mean Corpuscular Hemoglobin 30.9 pg (28.0-34.0); Mean Platelet Volume 10.7 fL (7.4-10.4); Monocytes # 0.7 10^3/uL (0.2-0.9); Monocytes % 8.9 %; Neutrophils # 5.5 10^3/uL (1.8-7.7); Neutrophils % 70.1 %; Nucleated Red Blood Cells % 0 %; Platelet Count 71 10^3/cmm (130-400); Red Blood Count 3.14 10^6/uL (4.1-5.3); Red Cell Distribution Width 14.1 % (12.1-15.1); White Blood Count 7.9 10^3/uL (4.0-10.0)
--- NOTE | 2019-11-01 05:44 | PC.NURSE ---
SHIFT SUMMARY PT HAS HAD ADEQUATE URINE OUTPUT. PT HAS GOTTEN UP TO THE CHAIR ONCE TONIGHT AND TRIED TO USE BEDSIDE COMMODE, NO BOWEL MOVEMENT, BUT PT PASSED GAS WHILE ON BSC. PT HAS HAD NO PAIN THROUGH OUT THE NIGHT.
[2019-11-01 05:48] LABS: Alanine Aminotransferase 20 U/L (0-41); Albumin Level 3.1 g/dL (3.5-5.2); Alkaline Phosphatase 55 IU/L (40-130); Aspartate Amino Transferase 22 U/L (0-40); Blood Urea Nitrogen 15 mg/dL (8-23); Carbon Dioxide 24 mmol/L (22-29); Chloride 105 mmol/L (98-107); Globulin 2.1 g/dL (1.3-4.6); Glomerular Filtration Rate 74.1 mL/min (90-130); Glucose 116 mg/dL (65-115); Osmolality Calculated 285 mOsm/kg (285-295); Sodium 139 mmol/L (136-145); Total Bilirubin 0.8 mg/dL (0.15-1.2); Total Protein 5.2 g/dL (6.6-8.7)
--- NOTE | 2019-11-01 06:31 | P.PN_ITS ---
Subjective Subjective: Interval history: Postop day #4 status post AVR. Continues to look very good. Unfortunately, platelet count continues to drift down to 71,000. White count is returned to normal at 7000. H&H is stable. Chemistries are good. I removed his mediastinal drains and pacing wires today. Nurses report he did have a brief episode of A. fib last night and converted fairly rap idly with initiation of amiodarone which is now been stopped again. I greatly appreciate the expertise and evaluations of Dr. Antonio and Dr. Ramirez. Vitals/I&O/Wt Last Vital Signs Temp 97.6 F 11/01/19 02:59 Pulse 162 H 11/01/19 04:00 Resp 26 H 11/01/19 04:00 BP 106/78 11/01/19 04:00 Pulse Ox 92 11/01/19 04:00 10/31/19 10/31/19 11/01/19 14:59 22:59 06:59 Intake Total 240 / 240 240 / 480 136.1 / 616.1 Output Total 1050 / 1050 1555 / 2605 Balance 240 / 240 -810 / -570 -1418.9 / -1988.9 Physical Exam Chest: COMMONS NORMALS: normal inspection of the chest (Chest wall is stable. Wound VAC dressing remains in place.) Resp: COMMON NORMALS: normal respiratory effort and clear to auscultation b ilaterally AUSCULTATION: clear to auscultation bilaterally Cardio: COMMON NORMALS: regular rate, regular rhythm, S1 normal heart sound present and Peripheral pulses 2+ throughout RATE: regular rate RHYTHM: regular rhythm HEART SOUNDS: S1 normal heart sound present PERIPHERAL PULSES: Peripheral pulses 2+ throughout Urinary Catheter Management^: Sellers: Cath Placed During This Visit: yes Urethral Indwelling: Yes Reason for Continuing Indwelling Catheter: Accurate Measurement of Urinary Output in Critically Ill Patients Urinary Catheter Date of Insertion: 10/28/19 Urinary Catheter Time of Insertion: 07:00 Data : 11/01/19 05:10 11/01/19 05:10 A&P Assessment and plan (1) Status post aortic valve replacement with bioprosthetic valve during current hospitalization: Postop day #4 status post AVR. Continued thrombocytopenia. We will DC Sellers catheter. I have discontinued the mediastinal drains as has had very low output. I greatly appreciate the assistance expertise of Dr. Ramirez and Dr. Antonio. Status: Acute Attestations Medical Necessity Statement*: Postop day #4 status post AVR Coding Level of Care Code Acute Pound Attendant for Madhu Rojas Diagnoses Status post aortic valve replacement with bioprosthetic valve during current hospitalization Z95.3
[2019-11-01 07:29] LABS: Glucose Point of Care 137 mg/dL (70-110)
--- NOTE | 2019-11-01 07:52 | P.PN_ITS ---
Subjective Subjective: Interval history: Mediastinal drains and pacing wires removed this morning by Dr. Fine due to minimal drainage, had 1500 mL urine output overnight. Had another episode of A. fib with RVR, given oral metoprolol as well as IV amiodarone. Converted to sinus rhythm shortly thereafter and remains rate controlled. AM labs noted with stable hemoglobin, slight drop in platelets from 75,000->71,000, normal renal function. He is postop day #4 status post aortic valve replacement. Sitting in chair, no apparent distress, continues to be very motivated in terms of activity. Sellers catheter removed this AM. Medications: Reviewed: Yes Medication Review Details: Active Medications Generic Name Dose Route Start Last Admin Trade Name Freq PRN Reason Stop Dose Admin Aspirin 81 mg 10/29/19 09:00 10/31/19 08:18 Aspirin Chewable PO 81 mg DAILY JUSTINO Administration Bisacodyl 5 mg 10/30/19 17:31 10/31/19 05:12 Dulcolax PO 5 mg Q6H PRN Administration COLD SYMPTOMS Chlorhexidine Gluc faith 15 ml 10/28/19 18:00 10/31/19 18:05 Perigard MUCOUS MEM Not Given BID JUSTINO Dextrose 25 ml 10/28/19 16:46 D50w IVP ONCE PRN hypoglycemia prot ocol Protocol Dextrose 50 ml 10/28/19 16:46 D50w IVP PRN PRN hypoglycemia prot ocol Protocol Dextrose 25 ml 10/30/19 05:52 D50w IVP ONCE PRN hypoglycemia prot ocol Protocol Dextrose 50 ml 10/30/19 05:52 D50w IVP PRN PRN hypoglycemia prot ocol Protocol Docusate Sodium 100 mg 10/30/19 17:31 10/31/19 21:18 Colace PO 100 mg BID PRN Administration CONSTIPATION Epinephrine 0.5 ml 10/28/19 16:46 Vaponephrine INHALATION Q6H.RESPIRATORY P RN Stridor Fentanyl 50 mcg 10/28/19 16:46 10/29/19 07:29 Sublimaze IVP 50 mcg Q1H PRN Administration SEVERE PAIN Glucagon 1 mg 10/28/19 16:46 Glucagen IM ONCE PRN Adult Acute Hypog lycemia Prot Protocol Glucagon 1 mg 10/30/19 05:52 Glucagen IM ONCE PRN Adult Acute Hypog lycemia Prot. Protocol Hydralazine HCl 5 mg 10/28/19 16:46 Apresoline IVP ONCE PRN Systolic BP > 140 mmHg Dobutamine HCl/Dex trose 500 mg in 250 mls @ 0 mls/hr 10/28/19 16:46 Dobutamine Drip IV .Q0M PRN Cardiac Output Protocol Per Protocol Dopamine HCl/Dextr ose 400 mg in 250 mls @ 13.608 mls/hr 10/28/19 16:46 Intropin Drip IV CONT PRN Hypotension Protocol 5 MCG/KG/MIN Norepinephrine Bit artrate 4 mg 254 mls @ 10.583 mls/hr 10/28/19 16:46 / Dextrose IV .Q24H PRN HYPOTENSION Protocol Phenylephrine HCl 25 mg/ 252.5 mls @ 0 mls /hr 10/28/19 16:46 Sodium Chloride IV .Q0M PRN HYPOTENSION Protocol Per Protocol Nitroglycerin/Dext parviz 50 mg in 250 mls @ 0 mls/hr 10/28/19 16:[address] ip IV .Q0M JUSTINO Protocol Per Protocol Sodium Nitroprussi de 50 mg/ 252 mls @ 0 mls/h r 10/28/19 16:46 Dextrose IV .Q0M JUSTINO Protocol Per Protocol Labetalol HCl 300 mg/ Sodium 300 mls @ 30 mls/ hr 10/28/19 16:46 Chloride IV .Q10H PRN Systolic BP > 140 mmHg Protocol 0.5 MG/MIN Albumin Human 12.5 gm in 250 ml s @ 600 mls/hr 10/28/19 16:46 10/29/19 20:47 Albumin IV Infused PRN PRN Infusion For CVP < 4 or SB P< 90 Dextrose 500 mls @ 100 mls /hr 10/28/19 16:46 D5w IV ONCE PRN Adult Acute Hypog lycemia Prot Protocol Propofol 1,000 mg in 100 m ls @ 0 mls/hr 10/28/19 16:46 10/29/19 07:34 Diprivan IV 0 mcg/kg/min .Q0M JUSTINO 0 mls/hr Titration Protocol Per Protocol Sodium Chloride 1,000 mls @ 30 ml s/hr 10/28/19 18:00 10/31/19 06:00 Sodium Chloride 0.45% IV 30 mls/hr .Q24H JUSTINO Infusion Dextrose 500 mls @ 100 mls /hr 10/30/19 05:52 D5w IV ONCE PRN Adult Acute Hypog lycemia Prot Protocol Amiodarone HCl 900 mg/ 518 mls @ 0 mls/h r 11/01/19 03:45 11/01/19 04:18 Dextrose/ IV Misce llaneous IV 0 mg/min Supplies .Q0M JUSTINO 0 mls/hr Titration Protocol Per Protocol Insulin Aspart 0 unit 10/30/19 08:00 11/01/19 07:40 Novolog SUBCUT Not Given WM&BEDTIME JUSTINO Protocol Labetalol HCl 10 mg 10/28/19 16:46 Trandate IVP Q5M PRN Systolic BP >140 mmHG Lactulose 30 gm 10/30/19 17:31 10/31/19 05:36 Constulose PO 30 gm QID PRN Administration CONSTIPATION Midazolam HCl 1 mg 10/28/19 16:46 Versed IVP Q1H PRN Sedation for Audra ey score < 4. Morphine Sulfate 2 mg 10/28/19 16:46 Morphine IVP Q1H PRN BREAKTHROUGH PAIN Naloxone HCl 0.1 mg 10/28/19 16:46 Narcan IVP Q2M PRN OPIATERV Ondansetron HCl 4 mg 10/28/19 16:46 10/29/19 12:44 Zofran IVP 4 mg Q6H PRN Administration NAUSEA Oxycodone/Acetamin ophen 1 - 2 tab 10/28/19 16:46 10/29/19 07:44 Percocet 5-325 M g PO 2 tab Q6H PRN Administration MILD TO MODERATE PAIN Penicillins Allergy (Unknown, Verified 10/25/19 08:04) Unknown Vitals/I&O/Wt Last Vital Signs Temp 97.6 F 11/01/19 02:59 Pulse 62 11/01/19 06:45 Resp 26 H 11/01/19 06:45 BP 106/67 11/01/19 06:45 Pulse Ox 95 11/01/19 06:45 10/31/19 11/01/19 11/01/19 22:59 06:59 14:59 Intake Total 240 / 480 136.1 / 616.1 Output Total 1050 / 1050 1555 / 2605 Balance -810 / -570 -1418.9 / -1988.9 Physical Exam Const: COMMON NORMALS: no acute distress, patient oriented x3 and alert GENERAL APPEARANCE: cooperative and comfortable ORIENTATION/CONSCIOUSNESS: Yes awake HENMT: COMMON NORMALS: normocephalic, atraumatic and moist oral mucous membranes HEAD & SCALP: normocephalic and atraumatic GENERAL EAR: hearing grossly impaired (has hearing aid in place) Laterality: left Eye: COMMON NORMALS: Equal, round and reactive pupils present, EOMs intact bilaterally and conjunctivae normal CONJUNCTIVA: Yes conjunctivae normal PUPIL: Yes Equal, round and reactive pupils present Neck/C-Spine: COMMON NORMALS: full ROM GENERAL: Yes normal visual inspection and Yes trachea midline OTHER: -R central line access removed, site with no noted hematoma Chest: CHEST: Yes Symmetrical chest wall rise OTHER: -sternotomy with wound vac in place -bilateral chest tubes in place Resp: COMMON NORMALS: normal respiratory effort, No retractions and No use of accessory muscles EFFORT & INSPECTION: Yes able to speak in complete sen tences, Yes symmetric chest movement and No tachypneic AUSCULTATION: diminished lung sounds OTHER: -on 2 L NC Cardio: COMMON NORMALS: regular rate, regular rhythm, S1 normal heart sound present and S2 normal heart sound present RATE: regular rate RHYTHM: regular rhythm HEART SOUNDS: S1 normal heart sound present and S2 normal heart sound present GI: COMMON NORMALS: Normal to inspection, nondistended, normoactive bowel sounds present, Soft to palpation and non-tender INSPECTION: Yes central obesity PALPATION: Yes Soft to palpation : BLADDER/KIDNEY EXAM: Yes catheter in place Extremity: COMMON NORMALS: normal to inspection and full ROM OTHER: -trace pitting edema of bilateral LEs Neuro: COMMON NORMALS: patient oriented x3, moves all extremities, no focal motor deficits and no sensory deficits noted SENSORIUM/ORIENTATION: Yes alert Psych: COMMON NORMALS: mental status grossly normal, Normal thought process present, cooperative, normal affect and speech normal SPEECH: Yes normal sp eech THOUGHT PROCESS: Normal thought process present Skin: COMMON NORMALS: no rashes or lesions noted, no jaundice, no petechiae and no mottling GENERAL SKIN EXAM: no rashes or lesions noted, no ecchymo, no jaundice and no petechiae Urinary Catheter Management^: Sellers: Cath Placed During This Visit: yes Urethral Indwelling: Yes Reason for Continuing Indwelling Catheter: Accurate Measurement of Urinary Output in Critically Ill Patients Urinary Catheter Date of Insertion: 10/28/19 Urinary Catheter Time of Insertion: 07:00 Data : 11/01/19 05:10 11/01/19 05:10 A&P Assessment and plan (1) Status post aortic valve replacement with bioprosthetic valve during current hospitalization: -POD # 4, done by Dr. Fine -s/p extubation (10/28) and respiratory status is stable, supplemental oxygen as needed -Mediastinal drains and pacing wires removed today -re-developed atrial fibrillation with RVR overnight, responded to IV Amiodarone and oral metoprolol, now in sinus rhythm with noted first degree AV block -Post-op H&H remained stable Status: Acute (2) Aortic stenosis, severe: Status: Chronic (3) Thrombocytopenia: -Baseline platelet count within normal limits, within the past 48 hours he has had a 50% reduction in his platelet count, unclear etiology but could be related to recent surgery, drug-induced in light of antiplatelet therapy, glycerin-containing solution, vancomycin used for perioperative prophylaxis of which he received 3 doses, last given today -Peripheral smear findings discussed with Dr. Gu (pathology); high suspicion for relation to recent surgery -vitamin B12 low normal, LFTs wnl, no hx of liver disease -no hx of immunosuppression, acute infection, no hx of EtOH abuse -noted anemia and elevated INR, PT, elevated LDH -anticipate that platelet count will plateau in the next day or so and gradually trend up to normal -no noted petechiae, ecchymosis on examination, no apparent bleeding outside of chest tube drainage -is currently on ASA 81 mg daily, previously on 325 mg; has received some AC with Lovenox and heparin during surgery which is now discontinued. Would avoid further anticoagulation in light of thrombocytopenia and anemia -would avoid platelet transfusion unless acute bleeding, further decrease in platelets Status: Acute (4) Atrial fibrillation: -noted to have atrial fibrillation with RVR post-op, responded to IV amiodarone, now on BB -telemetry monitoring -VSS, currently rate controlled, continue to monitor -Cardiology on board -currently not a good candidate for AC due to anemia and thrombocytopenia Status: Acute Qualifiers: Atrial fibrillation type: unspecified Qualified Code(s): I48.91 - Unspecified atrial fibrillation (5) Acute blood loss anemia: -baseline Hg wnl -noted normocytic anemia post-op, received transfusion of PRBCs post-op; Hg appears stable Status: Acute (6) HTN (hypertension): -VSS; continue to monitor Status: Acute Qualifiers: Hypertension type: essential hypertension Qualified Code(s): I10 - Essential (primary) hypertension Additional A&P Information -working well with therapy -has Sellers catheter in place, assess daily for removal -Hyperlipidemia; on statin -NIDDM type II, Accucheks, ISS, cardiac consistent carb diet, hypoglycemia precautions -fall precautions -DVT ppx with SCDs, no AC due to anemia, thrombocytopenia -Dispo: home with HH -Code status: FULL code Attestations Medical Necessity Statement*: Patient requires hospitalization for continued post-op management s/p aortic valve replacement, continued monitoring of hemoglobin and platelet count as well as management of atrial fibrillation with RVR. Time Spent in Patient Care: 16 - 35 minutes (>than 50% of time spent in counselling and/or direct pt care on unit) . Coding Level of Care Code Acute Hollow Tile Partition Erector for g Fwd Exam Comprehensive Diagnoses Status post aortic valve replacement with bioprosthetic valve during current hospitalization Z95.3 Aortic stenosis, severe I35.0 Thrombocytopenia D69.6 Atrial fibrillation I48.91 Atrial fibrillation type: unspecified Acute blood loss anemia D62 HTN (hypertension) I10 Hypertension type: essential hypertension
[2019-11-01 08:25] LABS: INR 1.05 (0.8-1.2)
[2019-11-01] MEDS: aspirin 81 mg Chew Tablet PO (08:47)
[2019-11-01] MEDS: cyanocobalamin 1,000 mcg Tablet 1000 MCG PO (08:47)
[2019-11-01] MEDS: chlorhexidine gluconate 0.12% Btl 473 mL 15 ML MUCOUS MEM ×2 (08:49→19:50)
[2019-11-01] MEDS: sodium chloride 0.45% 1,000 ML 30 ML IV (08:54)
[2019-11-01 11:32] LABS: Glucose Point of Care 108 mg/dL (70-110)
[2019-11-01] MEDS: docusate sodium 100 mg Capsule PO (13:58)
--- NOTE | 2019-11-01 14:42 | P.PN_ITS ---
Subjective Subjective: Interval history: Patient had episode of A. fib RVR last night within 28 minutes of IV amiodarone he was converted back to sinus rhythm. This morning he continues to be in sinus rhythm. Patient is walking around with physical therapy. Medications: Reviewed: Yes Medication Review Details: Active Medications Generic Name Dose Route Start Last Admin Trade Name Freq PRN Reason Stop Dose Admin Aspirin 81 mg 10/29/19 09:00 10/31/19 08:18 Aspirin Chewable PO 81 mg DAILY JUSTINO Administration Bisacodyl 5 mg 10/30/19 17:31 10/31/19 05:12 Dulcolax PO 5 mg Q6H PRN Administration COLD SYMPTOMS Chlorhexidine Gluc faith 15 ml 10/28/19 18:00 10/31/19 18:05 Perigard MUCOUS MEM Not Given BID JUSTINO Dextrose 25 ml 10/28/19 16:46 D50w IVP ONCE PRN hypoglycemia prot ocol Protocol Dextrose 50 ml 10/28/19 16:46 D50w IVP PRN PRN hypoglycemia prot ocol Protocol Dextrose 25 ml 10/30/19 05:52 D50w IVP ONCE PRN hypoglycemia prot ocol Protocol Dextrose 50 ml 10/30/19 05:52 D50w IVP PRN PRN hypoglycemia prot ocol Protocol Docusate Sodium 100 mg 10/30/19 17:31 10/31/19 21:18 Colace PO 100 mg BID PRN Administration CONSTIPATION Epinephrine 0.5 ml 10/28/19 16:46 Vaponephrine INHALATION Q6H.RESPIRATORY P RN Stridor Fentanyl 50 mcg 10/28/19 16:46 10/29/19 07:29 Sublimaze IVP 50 mcg Q1H PRN Administration SEVERE PAIN Glucagon 1 mg 10/28/19 16:46 Glucagen IM ONCE PRN Adult Acute Hypog lycemia Prot Protocol Glucagon 1 mg 10/30/19 05:52 Glucagen IM ONCE PRN Adult Acute Hypog lycemia Prot. Protocol Hydralazine HCl 5 mg 10/28/19 16:46 Apresoline IVP ONCE PRN Systolic BP > 140 mmHg Dobutamine HCl/Dex trose 500 mg in 250 mls @ 0 mls/hr 10/28/19 16:46 Dobutamine Drip IV .Q0M PRN Cardiac Output Protocol Per Protocol Dopamine HCl/Dextr ose 400 mg in 250 mls @ 13.608 mls/hr 10/28/19 16:46 Intropin Drip IV CONT PRN Hypotension Protocol 5 MCG/KG/MIN Norepinephrine Bit artrate 4 mg 254 mls @ 10.583 mls/hr 10/28/19 16:46 / Dextrose IV .Q24H PRN HYPOTENSION Protocol Phenylephrine HCl 25 mg/ 252.5 mls @ 0 mls /hr 10/28/19 16:46 Sodium Chloride IV .Q0M PRN HYPOTENSION Protocol Per Protocol Nitroglycerin/Dext parviz 50 mg in 250 mls @ 0 mls/hr 10/28/19 16:[address] ip IV .Q0M JUSTINO Protocol Per Protocol Sodium Nitroprussi de 50 mg/ 252 mls @ 0 mls/h r 10/28/19 16:46 Dextrose IV .Q0M JUSTINO Protocol Per Protocol Labetalol HCl 300 mg/ Sodium 300 mls @ 30 mls/ hr 10/28/19 16:46 Chloride IV .Q10H PRN Systolic BP > 140 mmHg Protocol 0.5 MG/MIN Albumin Human 12.5 gm in 250 ml s @ 600 mls/hr 10/28/19 16:46 10/29/19 20:47 Albumin IV Infused PRN PRN Infusion For CVP < 4 or SB P< 90 Dextrose 500 mls @ 100 mls /hr 10/28/19 16:46 D5w IV ONCE PRN Adult Acute Hypog lycemia Prot Protocol Propofol 1,000 mg in 100 m ls @ 0 mls/hr 10/28/19 16:46 10/29/19 07:34 Diprivan IV 0 mcg/kg/min .Q0M JUSTINO 0 mls/hr Titration Protocol Per Protocol Sodium Chloride 1,000 mls @ 30 ml s/hr 10/28/19 18:00 10/31/19 06:00 Sodium Chloride 0.45% IV 30 mls/hr .Q24H JUSTINO Infusion Dextrose 500 mls @ 100 mls /hr 10/30/19 05:52 D5w IV ONCE PRN Adult Acute Hypog lycemia Prot Protocol Amiodarone HCl 900 mg/ 518 mls @ 0 mls/h r 11/01/19 03:45 11/01/19 04:18 Dextrose/ IV Misce llaneous IV 0 mg/min Supplies .Q0M JUSTINO 0 mls/hr Titration Protocol Per Protocol Insulin Aspart 0 unit 10/30/19 08:00 11/01/19 07:40 Novolog SUBCUT Not Given WM&BEDTIME [facility] Protocol Labetalol HCl 10 mg 10/28/19 16:46 Trandate IVP Q5M PRN Systolic BP >140 mmHG Lactulose 30 gm 10/30/19 17:31 10/31/19 05:36 Constulose PO 30 gm QID PRN Administration CONSTIPATION Midazolam HCl 1 mg 10/28/19 16:46 Versed IVP Q1H PRN Sedation for Audra ey score < 4. Morphine Sulfate 2 mg 10/28/19 16:46 Morphine IVP Q1H PRN BREAKTHROUGH PAIN Naloxone HCl 0.1 mg 10/28/19 16:46 Narcan IVP Q2M PRN OPIATERV Ondansetron HCl 4 mg 10/28/19 16:46 10/29/19 12:44 Zofran IVP 4 mg Q6H PRN Administration NAUSEA Oxycodone/Acetamin ophen 1 - 2 tab 10/28/19 16:46 10/29/19 07:44 Percocet 5-325 M g PO 2 tab Q6H PRN Administration MILD TO MODERATE PAIN Penicillins Allergy (Unknown, Verified 10/25/19 08:04) Unknown Vitals/I&O/Wt Last Vital Signs Temp 97.8 F 11/01/19 12:00 Pulse 74 11/01/19 12:00 Resp 24 H 11/01/19 12:00 BP 128/77 11/01/19 12:00 Pulse Ox 94 11/01/19 12:00 10/31/19 11/01/19 11/01/19 22:59 06:59 14:59 Intake Total 240 / 480 784.6 / 1264.6 536 / 536 Output Total 1050 / 1050 1555 / 2605 200 / 200 Balance -810 / -570 -770.4 / -1340.4 336 / 336 Physical Exam Narrative: EXAM NARRATIVE: GENERAL: Patient is alert, awake and oriented x3. Midline scar covered with Band-Aid NECK: No jugular vein distension. HEENT: No cyanosis. No icterus. No pallor. HEART: Regular S1 and S2. No murmur, rub or gallop. LUNGS: Clear to auscultate bilaterally. ABDOMEN: Soft, nontender and nondistended. Positive bowel sounds. No guarding, rebound or tenderness. CENTRAL NERVOUS SYSTEM: Grossly nonfocal. EXTREMITIES: Lower extremities without edema bilaterally. Urinary Catheter Management^: Sellers: Cath Placed During This Visit: yes, but has since been removed by the nurse Urethral Indwelling: Yes Reason for Continuing Indwelling Catheter: Accurate Measurement of Urinary Output in Critically Ill Patients Urinary Catheter Date of Insertion: 10/28/19 Urinary Catheter Time of Insertion: 07:00 Date Urinary Catheter Removed: 11/01/19 Time Urinary Catheter Discontinued: 04:00 Data : 11/01/19 05:10 11/01/19 05:10 A&P Assessment and plan (1) Status post aortic valve replacement with bioprosthetic valve during current hospitalization: Postop day #4 status post AVR. Continued thrombocytopenia. We will DC Sellers catheter. I have discontinued the mediastinal drains as has had very low output. I greatly appreciate the assistance expertise of Dr. Ramirez and Dr. Antonio. Status: Acute (2) Atrial fibrillation: Patient is in sinus rhythm. We will start patient on p.o. 200 mg of amiodarone. I will be cautious as patient has exhibited sinus pauses. I may would like to add metoprolol towards the night if he stays in sinus rhythm and not bradycardic. Status: Acute Qualifiers: Atrial fibrillation type: unspecified Qualified Code(s): I48.91 - Unspecified atrial fibrillation (3) Thrombocytopenia: Continue to monitor. Currently stable Status: Acute (4) HTN (hypertension): Well-controlled continue medicine. Status: Acute Qualifiers: Hypertension type: essential hypertension Qualified Code(s): I10 - Essential (primary) hypertension Attestations Medical Necessity Statement*: Patient require continuation hospitalization for above defined care. Coding Level of Care Code Established Pt Acute Operations Specialist for g Fwd Patient Type Established History Expanded Problem Focused Exam Expanded Problem Focused Medical Decision Making Moderate Complexity Diagnoses Status post aortic valve replacement with bioprosthetic valve during current hospitalization Z95.3 Atrial fibrillation I48.91 Atrial fibrillation type: unspecified Thrombocytopenia D69.6 HTN (hypertension) I10 Hypertension type: essential hypertension
[2019-11-01] MEDS: amiodarone 200 mg Tablet PO (14:57)
[2019-11-01 16:51] LABS: Glucose Point of Care 105 mg/dL (70-110)
[2019-11-01] MEDS: acetaminophen 325 mg Tablet 650 MG PO (19:50)
[2019-11-01 21:03] LABS: Glucose Point of Care 106 mg/dL (70-110)
[2019-11-02] VITALS (21 sets, daily range): BP systolic 94–136; BP diastolic 55–83; PULSE 62–157; RESP 14–32; TEMP 36.5–37.1; O2SAT 92–100
--- NOTE | 2019-11-02 04:34 | PC.NURSE ---
PT HAD EPISODE OF TACHYCARDIA AT 0428. LASTED FOR A MINUTE AND PT WENT BACK INTO SINUS RYTHMN. PT DID NOT HAVE ANY COMPLAINTS OF ANY CHEST PAIN.
--- NOTE | 2019-11-02 04:42 | ECG_ITS ---
Measurements Intervals [place] Rate: 156 P: IL: 0 QRS: -53 QRSD: 125 T: 11 QT: 279 QTc: 450 ATRIAL FLUTTER/TACHYCARDIA WITH RAPID VENTRICULAR RESPONSE RIGHT BUNDLE BRANCH BLOCK [120+ ms QRS DURATION, UPRIGHT V1, 40+ ms S IN I I/aVL/V4/V5/V6] LEFT ANTERIOR FASCICULAR BLOCK [QRS AXIS <= -45, QR IN I, RS IN II] POSSIBLE ANTERIOR MYOCARDIAL INFARCTION [30 ms Q WAVE IN V3/V4, OR R < 0.2 mV V4], PROBABLY OLD Compared to ECG 11/01/2019 03:44:18 Myocardial infarct finding now present Electronically Signed On 11-03-2019 11:07:58 CDT by Cristopher Arteaga MD [email or web address]
[2019-11-02] MEDS: amiodarone 200 mg Tablet 400 MG PO ×4 (04:45→21:35)
[2019-11-02 04:47] LABS: Basophils % 0.2 %; Eosinophils # 0.2 10^3/uL (0.0-0.8); Eosinophils % 2.7 %; Hematocrit 30.5 % (42.0-52.0); Hemoglobin 10.2 g/dL (11.7-16.6); Lymphocytes # 1.7 10^3/uL (0.8-4.8); Lymphocytes % 19.5 %; Mean Corpuscular HGB Conc 33.4 g/dL (30.0-36.0); Mean Corpuscular Hemoglobin 30.8 pg (28.0-34.0); Mean Corpuscular Volume 92.1 fL (80-94); Mean Platelet Volume 10.8 fL (7.4-10.4); Monocytes # 0.9 10^3/uL (0.2-0.9); Monocytes % 10.3 %; Neutrophils # 5.8 10^3/uL (1.8-7.7); Nucleated Red Blood Cells % 0 %; Platelet Count 89 10^3/cmm (130-400); Red Blood Count 3.31 10^6/uL (4.1-5.3); Red Cell Distribution Width 13.7 % (12.1-15.1); White Blood Count 8.6 10^3/uL (4.0-10.0)
--- NOTE | 2019-11-02 05:04 | PC.NURSE ---
7102 DR GUERRA CONTACTED DUE TO PT HEART RATE BEING 150S. GAVE ORDER TO GIVE 400MG OF PO AMIODARONE AND CHANGE DAILY DOSE TO 400 MG.
--- NOTE | 2019-11-02 05:05 | PC.NURSE ---
6460 DR GUERRA WAS CONTACTED, PT WAS GIVEN PO AMIODARONE AND PT WAS SUSTAINING 150S-160S, 170S AT TIMES. AFLUTTER WAS NOTED ON EKG. GAVE ORDER FOR AMIO DRIP AT 1MG. AND TO SEE IF PT CONVERTS WITHIN THE NEXT HOUR AND HALF AND THEN STOP WHEN PT HAS CONVERTED BACK TO SINUS RYTHMN.
--- NOTE | 2019-11-02 06:23 | PC.NURSE ---
SHIFT SUMMARY PT HEART RATE CURRENTLYS 140S-150S. AMIO DRIP HAS BEEN RUNNING SINCE 0514 AT 1MG. PT IS ALERT AND ORIENTATED. PT HAS BEEN AFEBRILE. PT HAS BEEN IN CHAIR TWICE TONIGHT. PT HAS HAD ADEQUATE URINE OUTPUT. PT HAS PO INTAKE WELL. PT HAS HAD NO CHEST PAINS, NO COMPLAINTS. PT HAD SOME MILD PAIN AT BEGINNING OF SHIFT AND WAS GIVEN TYLENOL.
--- NOTE | 2019-11-02 06:29 | PC.NURSE ---
PT HEART RATE STILL IN 130S-160S. DR GUERRA CONTACTED TO NOTIFY, NO NEW ORDERS AT THIS TIME.
[2019-11-02 07:23] LABS: Glucose Point of Care 104 mg/dL (70-110)
[2019-11-02] MEDS: bisacodyl 5 mg Tablet PO (07:24)
[2019-11-02] MEDS: acetaminophen 325 mg Tablet 650 MG PO (07:25)
[2019-11-02] MEDS: docusate sodium 100 mg Capsule PO (07:25)
[2019-11-02] MEDS: aspirin 81 mg Chew Tablet PO (09:05)
[2019-11-02] MEDS: cyanocobalamin 1,000 mcg Tablet 1000 MCG PO (09:06)
--- NOTE | 2019-11-02 09:37 | P.PN_ITS ---
Subjective Subjective: Interval history: Patient seen and evaluated. Reviewed case with Dr. Fine. Patient post op day 4 for AVR. Developed post operative paroxysmal atrial fibrillation on IV amiodarone converting to oral therapy. had one episode self limited afib RVR over night. Now in NSR. Patient alert and conversive although anxiety over night. Denies pain or dyspnea. Medications: Reviewed: Yes Vitals/I&O/Wt Last Vital Signs Temp 97.7 F 11/02/19 08:00 Pulse 120 H 11/02/19 09:01 Resp 16 11/02/19 09:01 BP 96/83 11/02/19 08:00 Pulse Ox 93 11/02/19 09:01 11/01/19 11/02/19 11/02/19 22:59 06:59 14:59 Intake Total 416 / 952 120 / 1072 Output Total 725 / 925 200 / 1125 275 / 275 Balance -309 / 27 -80 / -53 -275 / -275 Physical Exam Narrative: EXAM NARRATIVE: Const: COMMON NORMALS: no acute distress, patient oriented x3 and well nourished GENERAL APPEARANCE: cooperative Neck/C-Spine: COMMON NORMALS: no JVD Chest: COMMONS NORMALS: normal inspection of the chest (dressing changed and wound looks good.) Resp: COMMON NORMALS: normal respiratory effort, No retractions and clear to auscultation bilaterally AUSCULTATION: clear to auscultation bilaterally and breath sounds absent (bilaterally slight diminished.) Cardio: COMMON NORMALS: no JVD, regular rate, regular rhythm, S1 normal heart sound present, S2 normal heart sound present, No gallops present (Cardio), No rub (Cardio) and Peripheral pulses 2+ throughout RATE: regular rate RHYTHM: regular rhythm HEART SOUNDS: S1 normal heart sound present and S2 normal heart sound present PERIPHERAL PULSES: Peripheral pulses 2+ throughout GI: COMMON NORMALS: Normal to inspection, nondistended, normoactive bowel so unds present and Soft to palpation PALPATION: Yes Soft to palpation Extremity: COMMON NORMALS: normal to inspection, capillary refill normal, no clubbing, cyanosis or edema, no calf tenderness and no pedal edema Neuro: COMMON NORMALS: patient oriented x3, CN's II-XII intact bilaterally and moves all extremities Skin: COMMON NORMALS: no rashes or lesions noted and turgor normal GENERAL SKIN EXAM: no rashes or lesions noted and turgor normal Urinary Catheter Management^: Sellers: Cath Placed During This Visit: yes, but has since been removed by the nurse Urethral Indwelling: Yes Reason for Continuing Indwelling Catheter: Accurate Measurement of Urinary Output in Critically Ill Patients Urinary Catheter Date of Insertion: 10/28/19 Urinary Catheter Time of Insertion: 07:00 Date Urinary Catheter Removed: 11/01/19 Time Urinary Catheter Discontinued: 04:00 Data : 11/02/19 04:30 11/01/19 05:10 A&P Assessment and plan (1) PAF (paroxysmal atrial fibrillation): Switch to po amiodarone increase oral dose to 300 mg tid. Add low dose beta blockade 12.5 metoprolol bid. Monitor LFT. Establish baseline TSH. Amiodarone post operatively for approximately three months with systemic anticoagulation once platelets have returned to normal and post operative bleeding risk is lessened. Wound continue to anticoagulate post op until PAF resolved. Status: Acute (2) Status post aortic valve replacement with bioprosthetic valve during current hospitalization: Doing well. Normal heart tones. Per surgical team. Status: Acute (3) HTN (hypertension): Controlled on medical therapy. Status: Acute Qualifiers: Hypertension type: essential hypertension Qualified Code(s): I10 - Essential (primary) hypertension (4) Thrombocytopenia: Continue to monitor. Status: Acute Attestations Medical Necessity Statement*: Medically necessary to continue to treat post op afib and convalescence post AVR. Time Spent in Patient Care: 16 - 35 minutes (>than 50% of time spent in counselling and/or direct pt care on unit) . Critical Care Time: Critical Care Time (min): 30 Coding Level of Care Code Acute Relay Tester for [facility] Fwd Exam Comprehensive Diagnoses PAF (paroxysmal atrial fibrillation) I48.0 Status post aortic valve replacement with bioprosthetic valve during current hospitalization Z95.3 HTN (hypertension) I10 Hypertension type: essential hypertension Thrombocytopenia D69.6 Time Spent (min) 30
[2019-11-02] MEDS: lactulose oral liq 20 gm/30 mL UDC 30 GM PO (09:43)
[2019-11-02] MEDS: chlorhexidine gluconate 0.12% Btl 473 mL 15 ML MUCOUS MEM ×2 (09:48→17:38)
--- NOTE | 2019-11-02 09:50 | P.PN_ITS ---
Subjective Subjective: Interval history: Postop day #5 status post AVR. Doing quite well though still has intermittent episodes of A. fib, usually at night. Platelet count has come up down to 89,000. I removed his wound VAC dressing today. Incision is clean and dry. Sternum stable. Drain sites well approximated. A new dressing was applied. He has had 1 bowel movement since his surgery. We will continue with our GI regimen and add lactulose. Dr. Artaega is covering for cardiology. Dr. Antonio has been assisting us from the hospitalist service. Vitals/I&O/Wt Last Vital Signs Temp 97.7 F 11/02/19 08:00 Pulse 120 H 11/02/19 09:01 Resp 16 11/02/19 09:01 BP 96/83 11/02/19 08:00 Pulse Ox 93 11/02/19 09:01 11/01/19 11/02/19 11/02/19 22:59 06:59 14:59 Intake Total 416 / 952 120 / 1072 Output Total 725 / 925 200 / 1125 275 / 275 Balance -309 / 27 -80 / -53 -275 / -275 Physical Exam Chest: COMMONS NORMALS: normal inspection of the chest (Wound VAC dressing removed. Sternum stable. Sternotomy incision intact, clean and dry. Drain sites well approximated.) and normal palpation of entire chest wall Resp: COMMON NORMALS: normal respiratory effort, No use of accessory muscles and clear to auscultation bilaterally EFFORT & INSPECTION: Yes able to speak in complete sentences and Yes symmetric chest movement AUSCULTATION: clear to auscultation bilaterally Cardio: COMMON NORMALS: regular rate, regular rhythm, S1 normal heart sound present and No murmurs present (Cardio) RATE: regular rate RHYTHM: regular rhythm HEART SOUNDS: S1 normal heart sound present Urinary Catheter Management^: Sellers: Cath Placed During This Visit: yes, but has since been removed by the nurse Urethral Indwelling: Yes Reason for Continuing Indwelling Catheter: Accurate Measurement of Urinary Output in Critically Ill Patients Urinary Catheter Date of Insertion: 10/28/19 Urinary Catheter Time of Insertion: 07:00 Date Urinary Catheter Removed: 11/01/19 Time Urinary Catheter Discontinued: 04:00 Data : 11/02/19 04:30 11/01/19 05:10 A&P Assessment and plan (1) Status post aortic valve replacement with bioprosthetic valve during current hospitalization: Postop day #5 status post AVR. Intermittent episodes of A. fib. Thrombocytopenia is now slowly improving. Recommendation: Amiodarone to be increased to 3 times daily per recommendations of Dr. Arteaga We will add low-dose metoprolol 12.5 mg twice daily Will transfer to intermediate care. Home health referral. Respiratory therapy evaluation for home oxygen needs. Betasept shower tomorrow. Status: Acute Attestations Medical Necessity Statement*: Postop status post aVR Time Spent in Patient Care: 16 - 35 minutes Coding Level of Care Code Acute Social Media Campaign Manager for g Fwd Exam Expanded Problem Focused Diagnoses Status post aortic valve replacement with bioprosthetic valve during current hospitalization Z95.3
[2019-11-02] MEDS: metoprolol tartrate 25 mg Tablet 12.5 MG PO (10:28)
--- NOTE | 2019-11-02 10:58 | P.PN_ITS ---
Subjective Subjective: Interval history: Overnight developed A. fib with RVR, required amiodarone drip, oral dose increased and addition of beta-hailee. Patient is postop day #5 status post aortic valve replacement. Had 700 mL urine output overnight. Wound VAC dressing removed this morning by Dr. Fine. Platelet count improved to 89,000. Seems to get anxious at night and reports poor sleep last night likely due to atrial fibrillation. Will be transferred to the floor for continued care. Has been off IV amiodarone for about an hour. Medications: Reviewed: Yes Medication Review Details: Active Medications Generic Name Dose Route Start Last Admin Trade Name Freq PRN Reason Stop Dose Admin Acetaminophen 650 mg 11/01/19 19:35 11/02/19 07:25 Tylenol PO 650 mg Q6H PRN Administration MILD PAIN Amiodarone HCl 400 mg 11/02/19 15:00 Cordarone PO TID JUSTINO Aspirin 81 mg 10/29/19 09:00 11/02/19 09:05 Aspirin Chewable PO 81 mg DAILY JUSTINO Administration Bisacodyl 5 mg 10/30/19 17:31 11/02/19 07:24 Dulcolax PO 5 mg Q6H PRN Administration COLD SYMPTOMS Chlorhexidine Gluc faith 15 ml 10/28/19 18:00 11/02/19 09:48 Perigard MUCOUS MEM 1 applic BID JUSTINO Administration Cyanocobalamin 1,000 mcg 11/01/19 09:00 11/02/19 09:06 Vitamin B-12 PO 1,000 mcg DAILY JUSTINO Administration Dextrose 25 ml 10/28/19 16:46 D50w IVP ONCE PRN hypoglycemia prot ocol Protocol Dextrose 50 ml 10/28/19 16:46 D50w IVP PRN PRN hypoglycemia prot ocol Protocol Dextrose 25 ml 10/30/19 05:52 D50w IVP ONCE PRN hypoglycemia prot ocol Protocol Dextrose 50 ml 10/30/19 05:52 D50w IVP PRN PRN hypoglycemia prot ocol Protocol Docusate Sodium 100 mg 10/30/19 17:31 11/02/19 07:25 Colace PO 100 mg BID PRN Administration CONSTIPATION Glucagon 1 mg 10/28/19 16:46 Glucagen IM ONCE PRN Adult Acute Hypog lycemia Prot Protocol Glucagon 1 mg 10/30/19 05:52 Glucagen IM ONCE PRN Adult Acute Hypog lycemia Prot. Protocol Insulin Aspart 0 unit 10/30/19 08:00 11/02/19 07:33 Novolog SUBCUT Not Given [facility]&BEDTIME [facility] Protocol Lactulose 30 gm 10/30/19 17:31 11/02/19 09:43 Constulose PO 30 gm QID PRN Administration CONSTIPATION Naloxone HCl 0.1 mg 10/28/19 16:46 Narcan IVP Q2M PRN OPIATERV Ondansetron HCl 4 mg 10/28/19 16:46 10/29/19 12:44 Zofran IVP 4 mg Q6H PRN Administration NAUSEA Penicillins Allergy (Unknown, Verified 10/25/19 08:04) Unknown Vitals/I&O/Wt Last Vital Signs Temp 97.7 F 11/02/19 08:00 Pulse 120 H 11/02/19 09:01 Resp 16 11/02/19 09:01 BP 96/83 11/02/19 08:00 Pulse Ox 93 11/02/19 09:01 11/01/19 11/02/19 11/02/19 22:59 06:59 14:59 Intake Total 416 / 952 120 / 1072 Output Total 725 / 925 200 / 1125 275 / 275 Balance -309 / 27 -80 / -53 -275 / -275 Physical Exam Const: COMMON NORMALS: no acute distress, patient oriented x3 and alert GENERAL APPEARANCE: cooperative and comfortable ORIENTATION/CONSCIOUSNESS: Yes awake HENMT: COMMON NORMALS: normocephalic, atraumatic and moist oral mucous membranes HEAD & SCALP: normocephalic and atraumatic GENERAL EAR: hearing grossly impaired (has hearing aid in place) Laterality: left Eye: COMMON NORMALS: Equal, round and reactive pupils present, EOMs intact bilaterally and conjunctivae normal CONJUNCTIVA: Yes conjunctivae normal PUPIL: Yes Equal, round and reactive pupils present Neck/C-Spine: COMMON NORMALS: full ROM GENERAL: Yes normal visual inspection and Yes trachea midline OTHER: -R central line access removed, site with no noted hematoma Chest: CHEST: Yes Symmetrical chest wall rise OTHER: -sternotomy with clean dressing in place, wound vac removed -bilateral chest tubes and pacing wires removed Resp: COMMON NORMALS: normal respiratory effort, No retractions and No use of accessory muscles EFFORT & INSPECTION: Yes able to speak in complete sentence s, Yes symmetric chest movement and No tachypneic AUSCULTATION: diminished lung sounds OTHER: -on 2 L NC Cardio: COMMON NORMALS: regular rate, regular rhythm, S1 normal heart sound present and S2 normal heart sound present RATE: regular rate RHYTHM: regular rhythm HEART SOUNDS: S1 normal heart sound present and S2 normal heart sound present GI: COMMON NORMALS: Normal to inspection, nondistended, normoactive bowel sounds present, Soft to palpation and non-tender INSPECTION: Yes central obesity PALPATION: Yes Soft to palpation : BLADDER/KIDNEY EXAM: Yes catheter in place Extremity: COMMON NORMALS: normal to inspection and full ROM Neuro: COMMON NORMALS: patient oriented x3, moves all extremities, no focal motor deficits and no sensory deficits noted SENSORIUM/ORIENTATION: Yes alert Psych: COMMON NORMALS: mental status grossly normal, Normal thought process present, cooperative, normal affect and speech normal SPEECH: Yes normal s peech THOUGHT PROCESS: Normal thought process present Skin: COMMON NORMALS: no rashes or lesions noted, no jaundice, no petechiae and no mottling GENERAL SKIN EXAM: no rashes or lesions noted, no ecchymo, no jaundice and no petechiae Urinary Catheter Management^: Sellers: Cath Placed During This Visit: yes, but has since been removed by the nurse Urethral Indwelling: Yes Reason for Continuing Indwelling Catheter: Accurate Measurement of Urinary Output in Critically Ill Patients Urinary Catheter Date of Insertion: 10/28/19 Urinary Catheter Time of Insertion: 07:00 Date Urinary Catheter Removed: 11/01/19 Time Urinary Catheter Discontinued: 04:00 Data : 11/02/19 04:30 11/01/19 05:10 A&P Assessment and plan (1) Status post aortic valve replacement with bioprosthetic valve during current hospitalization: -POD # 5, done by Dr. Fine -s/p extubation (10/28) and respiratory status is stable, supplemental oxygen as needed -Mediastinal drains and pacing wires removed (10/31); wound vac dressing removed today -had episode of paroxysmal atrial fibrillation with RVR overnight, responded to IV Amiodarone and oral metoprolol, now in sinus rhythm -Post-op H&H remained stable Status: Acute (2) Aortic stenosis, severe: Status: Chronic (3) Thrombocytopenia: -Baseline platelet count within normal limits, within the past 48 hours he has had a 50% reduction in his platelet count, unclear etiology but could be related to recent surgery, drug-induced in light of antiplatelet therapy, glycerin-containing solution, vancomycin used for perioperative prophylaxis of which he received 3 doses, last given today -Peripheral smear findings discussed with Dr. Gu (pathology); high suspicion for relation to recent surgery -vitamin B12 low normal, LFTs wnl, no hx of liver disease -no hx of immunosuppression, acute infection, no hx of EtOH abuse -noted anemia and elevated INR, PT, elevated LDH -anticipate that platelet count will plateau in the next day or so and gradually trend up to normal; improved platelet count today -no noted petechiae, ecchymosis on examination, no apparent bleeding outside of chest tube drainage -is currently on ASA 81 mg daily, previously on 325 mg; has received some AC with Lovenox and heparin during surgery which is now discontinued. Would avoid further anticoagulation in light of thrombocytopenia and anemia -would avoid platelet transfusion unless acute bleeding, further decrease in platelets Status: Acute (4) Atrial fibrillation: -noted to have paroxysmal atrial fibrillation with RVR post-op, responded to IV amiodarone, titrating oral dose per cardiology -telemetry monitoring -VSS, currently rate controlled, continue to monitor -Cardiology on board -currently not a good candidate for AC due to anemia and thrombocytopenia Status: Acute Qualifiers: Atrial fibrillation type: paroxysmal Qualified Code(s): I48.0 - Paroxysmal atrial fibrillation (5) Acute blood loss anemia: -baseline Hg wnl -noted normocytic anemia post-op, received transfusion of PRBCs post-op; Hg appears stable Status: Acute (6) HTN (hypertension): -VSS; continue to monitor Status: Acute Qualifiers: Hypertension type: essential hypertension Qualified Code(s): I10 - Essential (primary) hypertension Additional A&P Information -working well with therapy -Sellers catheter removed and voiding independently without difficulty -Hyperlipidemia; on statin -NIDDM type II, Accucheks, ISS, cardiac consistent carb diet, hypoglycemia precautions -fall precautions -DVT ppx with SCDs, no AC due to anemia, thrombocytopenia -Dispo: home with -Code status: FULL code -transfer to floor for continued care Attestations Medical Necessity Statement*: Patient requires hospitalization for continued post-op management, with paroxsymal atrial fibrillation requiring appropriate rate control and continued monitoring of platelet count. Time Spent in Patient Care: 16 - 35 minutes (>than 50% of time spent in counselling and/or direct pt care on unit) . Coding Level of Care Code Acute Cell Tester for g Fwd Exam Comprehensive Diagnoses Status post aortic valve replacement with bioprosthetic valve during current hospitalization Z95.3 Aortic stenosis, severe I35.0 Thrombocytopenia D69.6 Atrial fibrillation I48.0 Atrial fibrillation type: paroxysmal Acute blood loss anemia D62 HTN (hypertension) I10 Hypertension type: essential hypertension
[2019-11-02 11:36] LABS: Glucose Point of Care 128 mg/dL (70-110)
[2019-11-02 16:57] LABS: Glucose Point of Care 117 mg/dL (70-110)
[2019-11-02 20:30] LABS: Glucose Point of Care 131 mg/dL (70-110)
[2019-11-02] MEDS: ALPRAZolam 0.25 mg Tablet PO (21:35)
[2019-11-03] VITALS: BP 107/70; PULSE 68; RESP 22; TEMP 36.8; O2SAT 95
[2019-11-03 04:00] VITALS: BP 131/83; PULSE 69; RESP 20; TEMP 36.9; O2SAT 95
[2019-11-03 05:42] LABS: Platelet Count 83 10^3/cmm (130-400)
[2019-11-03 06:58] LABS: Glucose Point of Care 106 mg/dL (70-110)
[2019-11-03 07:47] VITALS: BP 124/78; PULSE 66; RESP 19; TEMP 36.6; O2SAT 94
--- NOTE | 2019-11-03 07:50 | XRR_ITS ---
PROCEDURE INFORMATION: Exam: XR Chest, 1 View Exam date and time: 11/03/2019 8:07 AM Age: 69 years old Clinical indication: Device placement; Prior surgery; Additional info: Post avr TECHNIQUE: Imaging protocol: XR of the chest Views: 1 view. COMPARISON: CR XR chest 1V portable [id number] 10/31/2019 4:59 AM FINDINGS: Lungs: Mild airspace disease within the left lung base. Pleural space: Unremarkable. No pleural effusion. No pneumothorax. Heart/Mediastinum: cardiac silhouette is enlarged. Prior sternotomy. Bones/joints: See Heart/Mediastinum finding. XR/XR chest 1V portable [id number] IMPRESSION: Mild airspace disease within the left lung base. Small subpulmonic effusion left greater than right Improved.
--- NOTE | 2019-11-03 07:53 | P.PN_ITS ---
Subjective Subjective: Interval history: Follow up examination for atrial fibrillation post op AVR on amiodarone. The patient slept ok last night. No complaints of pain. Appears mildly dyspneic with shallow respirations. Medications: Reviewed: Yes Vitals/I&O/Wt Last Vital Signs Temp 97.9 F 11/03/19 07:47 Pulse 66 11/03/19 07:47 Resp 19 H 11/03/19 07:47 BP 124/78 11/03/19 07:47 Pulse Ox 94 11/03/19 07:47 11/02/19 11/03/19 11/03/19 22:59 06:59 14:59 Intake Total 300 / 1004 Output Total 250 / 1100 900 / 2000 Balance 50 / -96 -900 / -996 Physical Exam Const: COMMON NORMALS: patient oriented x3 and well nourished GENERAL APPEARANCE: well developed Neck/C-Spine: OTHER: JVD elevated in upright position. Chest: CHEST: Yes Symmetrical chest wall rise Resp: COMMON NORMALS: normal respiratory effort AUSCULTATION: abnormal I/E ratio, rales (basilar) on the right and breath sounds absent (bases) Cardio: COMMON NORMALS: regular rate, regular rhythm, S1 normal heart sound present, S2 normal heart sound present, No gallops present (Cardio), No murmurs present (Cardio), No rub (Cardio) and Peripheral pulses 2+ throughout RATE: regular rate RHYTHM: regular rhythm HEART SOUNDS: S1 normal heart sound present and S2 normal heart sound present PERIPHERAL PULSES: Peripheral pulses 2+ throughout GI: COMMON NORMALS: Normal to inspection, nondistended, normoactive bowel sounds present, Soft to palpation and non-tender PALPATION: Yes Soft to palpation Extremity: COMMON NORMALS: normal to inspection, full ROM, capillary refill normal and no pedal edema Neuro: COMMON NORMALS: patient oriented x3, CN's II-XII intact bilaterally, moves all extremities and no focal motor deficits Psych: COMMON NORMALS: mental status grossly normal, Normal thought process present, cooperative and normal affect THOUGHT PROCESS: Normal thought process present Skin: COMMON NORMALS: no rashes or lesions noted GENERAL SKIN EXAM: no rashes or lesions noted Urinary Catheter Management^: Sellers: Cath Placed During This Visit: yes, but has since been removed by the nurse Urethral Indwelling: Yes Reason for Continuing Indwelling Catheter: Accurate Measurement of Urinary Output in Critically Ill Patients Urinary Catheter Date of Insertion: 10/28/19 Urinary Catheter Time of Insertion: 07:00 Date Urinary Catheter Removed: 11/01/19 Time Urinary Catheter Discontinued: 04:00 Data : 11/03/19 04:52 11/01/19 05:10 A&P Assessment and plan (1) PAF (paroxysmal atrial fibrillation): Mainaining NSR. Full oral dosing of amiodarone. If pateint discharged would go to 400 mg bid for 7 days then 200 mg bid for 7 days then 200 mg daily with continuation for 3 months then if no recurrence would discontinue. EKG in cardiology office in 10 days. Status: Acute (2) Status post aortic valve replacement with bioprosthetic valve during current hospitalization: He appears to be doing well. Check chest xray as he has some evidence of volume overload. Diuretic therapy may be indicated for a few days at home. CXR pending. Further assessment by Dr. Fine. Status: Acute (3) HTN (hypertension): Controlled. Status: Acute Qualifiers: Hypertension type: essential hypertension Qualified Code(s): I10 - Essential (primary) hypertension Attestations Medical Necessity Statement*: Patient post op AVR. Time Spent in Patient Care: 16 - 35 minutes (>than 50% of time spent in counselling and/or direct pt care on unit) . Coding Level of Care Code Acute Senior Environmental Technician for g Fwd Diagnoses PAF (paroxysmal atrial fibrillation) I48.0 Status post aortic valve replacement with bioprosthetic valve during current hospitalization Z95.3 HTN (hypertension) I10 Hypertension type: essential hypertension
--- NOTE | 2019-11-03 07:56 | P.PN_ITS ---
Subjective Subjective: Interval history: Hemodynamically stable, had 1150 mL urine output overnight. Platelet count stable at 83,000. No bleeding. Reports having had a good night, sleep most of the night, in very good spirits, telemetry shows atrial fibrillation though rate well controlled. Had a BM yesterday. Very eager to go home today. Medications: Reviewed: Yes Medication Review Details: Active Medications Generic Name Dose Route Start Last Admin Trade Name Freq PRN Reason Stop Dose Admin Acetaminophen 650 mg 11/01/19 19:35 11/02/19 07:25 Tylenol PO 650 mg Q6H PRN Administration MILD PAIN Alprazolam 0.25 mg 11/02/19 20:30 11/02/19 21:35 Xanax PO 0.25 mg TID PRN Administration ANXIETY Amiodarone HCl 400 mg 11/02/19 15:00 11/02/19 21:35 Cordarone PO 400 mg TID JUSTINO Administration Aspirin 81 mg 10/29/19 09:00 11/02/19 09:05 Aspirin Chewable PO 81 mg DAILY JUSTINO Administration Bisacodyl 5 mg 10/30/19 17:31 11/02/19 07:24 Dulcolax PO 5 mg Q6H PRN Administration COLD SYMPTOMS Chlorhexidine Gluc faith 15 ml 10/28/19 18:00 11/02/19 17:38 Perigard MUCOUS MEM 30 applic BID JUSTINO Administration Cyanocobalamin 1,000 mcg 11/01/19 09:00 11/02/19 09:06 Vitamin B-12 PO 1,000 mcg DAILY JUSTINO Administration Dextrose 25 ml 10/28/19 16:46 D50w IVP ONCE PRN hypoglycemia prot ocol Protocol Dextrose 50 ml 10/28/19 16:46 D50w IVP PRN PRN hypoglycemia prot ocol Protocol Dextrose 25 ml 10/30/19 05:52 D50w IVP ONCE PRN hypoglycemia prot ocol Protocol Dextrose 50 ml 10/30/19 05:52 D50w IVP PRN PRN hypoglycemia prot ocol Protocol Docusate Sodium 100 mg 10/30/19 17:31 11/02/19 07:25 Colace PO 100 mg BID PRN Administration CONSTIPATION Glucagon 1 mg 10/28/19 16:46 Glucagen IM ONCE PRN Adult Acute Hypog lycemia Prot Protocol Glucagon 1 mg 05/20/20 05:52 Glucagen IM ONCE PRN Adult Acute Hypog lycemia Prot. Protocol Insulin Aspart 0 unit 10/30/19 08:00 11/03/19 07:12 Novolog SUBCUT Not Given WM&BEDTIME JUSTINO Protocol Lactulose 30 gm 10/30/19 17:31 11/02/19 09:43 Constulose PO 30 gm QID PRN Administration CONSTIPATION Naloxone HCl 0.1 mg 10/28/19 16:46 Narcan IVP Q2M PRN OPIATERV Ondansetron HCl 4 mg 10/28/19 16:46 10/29/19 12:44 Zofran IVP 4 mg Q6H PRN Administration NAUSEA Trazodone HCl 50 mg 11/02/19 20:29 Desyrel PO BEDTIME PRN INSOMNIA Penicillins Allergy (Unknown, Verified 10/25/19 08:04) Unknown Vitals/I&O/Wt Last Vital Signs Temp 97.9 F 11/03/19 07:47 Pulse 66 11/03/19 07:47 Resp 19 H 11/03/19 07:47 BP 124/78 11/03/19 07:47 Pulse Ox 94 11/03/19 07:47 11/02/19 11/03/19 11/03/19 22:59 06:59 14:59 Intake Total 300 / 1004 Output Total 250 / 1100 900 / 2000 300 / 300 Balance 50 / -96 -900 / -996 -300 / -300 Physical Exam Const: COMMON NORMALS: no acute distress, patient oriented x3 and alert GENERAL APPEARANCE: cooperative and comfortable ORIENTATION/CONSCIOUSNESS: Yes awake HENMT: COMMON NORMALS: normocephalic, atraumatic and moist oral mucous membranes HEAD & SCALP: normocephalic and atraumatic GENERAL EAR: hearing grossly impaired (has hearing aids in place) Laterality: left Eye: COMMON NORMALS: Equal, round and reactive pupils present, EOMs intact bilaterally and conjunctivae normal CONJUNCTIVA: Yes conjunctivae normal PUPIL: Yes Equal, round and reactive pupils present Neck/C-Spine: COMMON NORMALS: full ROM GENERAL: Yes normal visual inspection and Yes trachea midline OTHER: -R central line access removed, sit e with no noted hematoma Chest: CHEST: Yes Symmetrical chest wall rise OTHER: -sternotomy with clean dressing in place, wound vac removed -bilateral chest tubes and pacing wires removed Resp: COMMON NORMALS: normal respiratory effort, No retractions and No use of accessory muscles EFFORT & INSPECTION: Yes able to speak in complete sentences, Yes symmetric chest movement and No tachypneic AUSCULTATION: diminished lung sounds OTHER: -on RA Cardio: COMMON NORMALS: regular rate, regular rhythm, S1 normal heart sound present and S2 normal heart sound present RATE: regular rate RHYTHM: regular rhythm HEART SOUNDS: S1 normal heart sound present and S2 normal heart sound present GI: COMMON NORMALS: Normal to inspection, nondistended, normoactive bowel sounds present, Soft to palpation and non-tender INSPECTION: Yes central obesity PALPATION: Yes Soft to palpation Extremity: COMMON NORMALS: normal to inspection and full ROM Neuro: COMMON NORMALS: patient oriented x3, moves all extremities, no focal motor deficits and no sensory deficits noted SENSORIUM/ORIENTATION: Yes alert Psych: COMMON NORMALS: mental status grossly normal, Normal thought process present, cooperative, normal affect and speech normal SPEECH: Yes normal speech THOUGHT PROCESS: Normal thought process present Skin: COMMON NORMALS: no rashes or lesions noted, no jaundice, no petechiae and no mottling GENERAL SKIN EXAM: no rashes or lesions noted, no ecchymo, no jaundice and no petechiae Urinary Catheter Management^: Sellers: Cath Placed During This Visit: yes, but has since been removed by the nurse Urethral Indwelling: Yes Reason for Continuing Indwelling Catheter: Accurate Measurement of Urinary Output in Critically Ill Patients Urinary Catheter Date of Insertion: 10/28/19 Urinary Catheter Time of Insertion: 07:00 Date Urinary Catheter Removed: 11/01/19 Time Urinary Catheter Discontinued: 04:00 Data : 11/03/19 04:52 11/01/19 05:10 A&P Assessment and plan (1) Status post aortic valve replacement with bioprosthetic valve during current hospitalization: -POD # 6, done by Dr. Fine -s/p extubation (10/28) and respiratory status is stable, supplemental oxygen as needed -Mediastinal drains and pacing wires removed (10/31); wound vac dressing removed today -had episode of paroxysmal atrial fibrillation with RVR overnight, responded to IV Amiodarone and oral metoprolol, now in sinus rhythm -Post-op H&H remained stable Status: Acute (2) Aortic stenosis, severe: Status: Chronic (3) Thrombocytopenia: -Baseline platelet count within normal limits, within 48 hours window he had a 50% reduction in his platelet count, unclear etiology but could be related to recent surgery, drug-induced in light of antiplatelet therapy, glycerin- containing solution, vancomycin used for perioperative prophylaxis of which he received 3 doses, last given today -Peripheral smear findings discussed with Dr. Gu (pathology); high suspicion for relation to recent surgery -vitamin B12 low normal, LFTs wnl, no hx of liver disease -no hx of immunosuppression, acute infection, no hx of EtOH abuse -noted anemia and elevated INR, PT, elevated LDH -anticipate that platelet count will plateau in the next day or so and gradually trend up to normal; improved platelet count today -no noted petechiae, ecchymosis on examination, no apparent bleeding outside of chest tube drainage -is currently on ASA 81 mg daily, previously on 325 mg; has received some AC with Lovenox and heparin during surgery which is now discontinued. Would avoid further anticoagulation in light of thrombocytopenia and anemia -would avoid platelet transfusion unless acute bleeding, further decrease in platelets -PCP to follow up on labs, home health can draw CBC in 2-3 days. Discussed need to monitor for any bleeding and seek medical attention if this happens Status: Acute (4) Atrial fibrillation: -noted to have paroxysmal atrial fibrillation with RVR post-op, responded to IV amiodarone, titrating oral dose per cardiology -telemetry monitoring -VSS, currently rate controlled, continue to monitor -Cardiology on board -currently not a good candidate for AC due to anemia and thrombocytopenia Status: Acute Qualifiers: Atrial fibrillation type: paroxysmal Qualified Code(s): I48.0 - Paroxysmal atrial fibrillation (5) Acute blood loss anemia: -baseline Hg wnl -noted normocytic anemia post-op, received transfusion of PRBCs post-op; Hg appears stable Status: Acute (6) HTN (hypertension): -VSS; continue to monitor Status: Acute Qualifiers: Hypertension type: essential hypertension Qualified Code(s): I10 - Essential (primary) hypertension Additional A&P Information -working well with therapy -Sellers catheter removed and voiding independently without difficulty -Hyperlipidemia; on statin -NIDDM type II, Accucheks, ISS, cardiac consistent carb diet, hypoglycemia precautions -fall precautions -DVT ppx with SCDs, no AC due to anemia, thrombocytopenia -Dispo: home with -Code status: FULL code Attestations Medical Necessity Statement*: Discharge home today Time Spent in Patient Care: 16 - 35 minutes (>than 50% of time spent in counselling and/or direct pt care on unit) . Coding Level of Care Code Acute Diamond Cutter for Madhu Rojas Diagnoses Status post aortic valve replacement with bioprosthetic valve during current hospitalization Z95.3 Aortic stenosis, severe I35.0 Thrombocytopenia D69.6 Atrial fibrillation I48.0 Atrial fibrillation type: paroxysmal Acute blood loss anemia D62 HTN (hypertension) I10 Hypertension type: essential hypertension
[2019-11-03] MEDS: amiodarone 200 mg Tablet 400 MG PO (08:32)
[2019-11-03] MEDS: chlorhexidine gluconate 4% Btl 118 mL 1 APPLIC TOPICAL (08:32)
[2019-11-03] MEDS: aspirin 81 mg Chew Tablet PO (08:32)
[2019-11-03] MEDS: cyanocobalamin 1,000 mcg Tablet 1000 MCG PO (08:33)
[2019-11-03] MEDS: chlorhexidine gluconate 0.12% Btl 473 mL 15 ML MUCOUS MEM (08:33)
--- NOTE | 2019-11-03 10:01 | P.DS_ITS ---
Discharge Providers Date of Admission: 10/28/19 16:35 Date of Discharge: November 03, 2019 Attending Provider at Admission: Bassam Fine MD Attending Provider at Discharge: Bassam Fine MD Primary Care Provider: Markie Snell Diagnoses at Discharge Discharge Diagnosis (1) Status post aortic valve replacement with bioprosthetic valve during current hospitalization: Status: Acute Problem details: Hemodynamically stable since aortic valve replacement (2) Aortic stenosis, severe: Status: Chronic Problem details: Resolved following aortic valve replacement (3) Thrombocytopenia: Status: Acute Problem details: Improving (4) Atrial fibrillation: Status: Acute Problem details: Intermittent paroxysmal atrial fibrillation under better control with amiodarone Qualifiers: Atrial fibrillation type: paroxysmal Qualified Code(s): I48.0 - Paroxysmal atrial fibrillation (5) Acute blood loss anemia: Status: Acute Problem details: H&H is stable (6) HTN (hypertension): Status: Acute Problem details: Controlled Qualifiers: Hypertension type: essential hypertension Qualified Code(s): I10 - Essential (primary) hypertension (7) PAF (paroxysmal atrial fibrillation): Status: Acute Problem details: Under better control with amiodarone Reason for Visit Reason for Visit: Reason For Visit: REPLACING VALVE Hospital Course Discharge Summary: 69-year-old gentleman with severe and increasingly sy mptomatic aortic valve stenosis electively admitted on October 27 underwent aortic valve replacement with a pericardial tissue valve. Postoperatively, hemodynamically, he has done well 3 is had intermittent episodes of atrial fibrillation under better control now with amiodarone. He did have a decreasing platelet count and this was observed expectantly for several days and now it is beginning to increase. He is had no bleeding complications. He has independent ambulation. Incisions are healing well. Sternum is stable. Lungs are clear. All drains and pacing wires have been removed. Home oxygen evaluation will be completed prior to discharge. Home health referral will be arranged and confirmed prior to discharge. He is very eager for discharge to home. He will follow-up with me in 4 days on November 06. We will confirm home health arrangements have been completed and our staff will contact this agency to confirm expected postoperative care. At the time of discharge he is in stable condition. Physical Exam Const: COMMON NORMALS: patient oriented x3 and alert ORIENTATION/CONSCIOUSNESS: Yes oriented to person, Yes oriented to place and Yes oriented to time Chest: COMMONS NORMALS: normal inspection of the chest (Sternotomy incision healing well. Drain sites well approximated.) and normal palpation of entire c hest wall (Chest is stable to palpation.) Resp: COMMON NORMALS: normal respiratory effort, No retractions, clear to auscultation bilaterally and percussion normal EFFORT & INSPECTION: Yes able to speak in complete sentences and Yes symmetric chest movement AUSCULTATION: clear to auscultation bilaterally PERCUSSION: percussion normal Cardio: COMMON NORMALS: regular rate, regular rhythm, S1 normal heart sound present and S2 normal heart sound present PALPATION: normal PMI RATE: regular rate RHYTHM: regular rhythm HEART SOUNDS: S1 normal heart sound present, S2 normal heart sound present, no gallops and no murmurs PERIPHERAL PULSES: radial pulses present Extremity: COMMON NORMALS: negative for no pedal edema (There is a trace of pedal edema bilaterally.) Neuro: COMMON NORMALS: patient oriented x3, no focal motor deficits and no sensory deficits noted SENSORIUM/ORIENTATION: Yes alert, Yes oriented to person, Yes oriented to place and Yes oriented to time Urinary Catheter Management^: Sellers: Cath Placed During This Visit: yes, but has since been removed by the nurse Urethral Indwelling: Yes Reason for Continuing Indwelling Catheter: Accurate Measurement of Urinary Output in Critically Ill Patients Urinary Catheter Date of Insertion: 10/28/19 Urinary Catheter Time of Insertion: 07:00 Date Urinary Catheter Removed: 11/01/19 Time Urinary Catheter Discontinued: 04:00 Discharge Data Data Completed and Pending: Completed Studies During Hospitalization Category Date Time Status CXRP [XR chest 1V portable [id number]] R outine Exams 10/28/19 05:45 Completed XR chest 1V jordy ble [id number] Routine Exams 10/28/19 08:43 Completed XR chest 1V jordy ble [id number] Routine Exams 10/28/19 15:52 Completed XR chest 1V jordy ble [id number] Routine Exams 10/29/19 06:00 Completed XR chest 1V jordy ble [id number] Routine Exams 10/30/19 06:00 Completed XR chest 1V jordy ble [id number] Routine Exams 10/31/19 06:00 Completed XR chest 1V jordy ble [id number] Stat Exams 10/28/19 14:21 Completed XR chest 1V jordy ble [id number] Stat Exams 11/03/19 07:50 Completed Pathology: Surgic al [PTH] Routine Pth 10/28/19 11:57 Completed Pending at discharge Category Date Time Status ABG FULL [Arteria l Blood Gas Full] Routine Lab 10/28/19 14:07 Ordered Arterial Blood Ga s Full AM LABS Lab 10/29/19 04:49 Results Arterial Blood Ga s W/O Coox Stat Lab 10/28/19 17:10 Results Labs from last 24 hours 11/03/19 11/03/19 11/02/19 06:49 04:52 20:18 Plt Count 83 L POC Glucose 106 131 11/02/19 11/02/19 16:49 11:32 Plt Count POC Glucose 117 128 Vitals: Last Vital Signs Temp 97.9 F 11/03/19 07:47 Pulse 66 11/03/19 07:47 Resp 19 H 11/03/19 07:47 BP 124/78 11/03/19 07:47 Pulse Ox 94 11/03/19 07:47 Discharge Plan Discharge Patient Disposition: Home, Self-Care Condition: Stable Prescriptions: New amiodarone [Pacerone] 200 mg Tablet 400 mg PO TID Qty: 42 RF: 0 Trinidad 5-325 mg tablet 1 tab PO Q6H PRN (Reason: pain) Qty: 28 RF: 0 metoprolol tartrate 25 mg tablet 12.5 mg PO BID Qty: 60 RF: 4 Continued metformin 1,000 mg tablet 500 mg PO BID RF: 0 fluticasone propionate [Children's Flonase Allergy Rlf] 50 mcg/actuation spray,suspension 1 spray INTRANASAL DAILY RF: 0 atorvastatin 40 mg tablet 40 mg PO DAILY RF: 0 amlodipine 5 mg tablet 5 mg PO DAILY RF: 0 benazepril 20 mg tablet 10 mg PO DAILY RF: 0 aspirin [Aspirin Low Dose] 81 mg Tablet,Delayed Release (Dr/Ec) 81 mg PO DAILY RF: 0 Discontinued aspirin 325 mg tablet 325 mg PO DAILY RF: 0 Discharge Orders: Discharge Order (Routine); Ordered 11/03/19 Ordered By: Bassam Fine Referrals: Bassam Fine MD [Physician] - 11/07/19 (Contact office on Monday to confirm appointment for ) Discharge Diet: Diabetic Discharge Activity: Limit activity as instructed Activity Restrictions/Additional Instructions: No pulling or pushing greater than 5 pounds May shower daily but no swimming or tub baths x2 weeks Dry incision completely after showers Annada with Betadine and recover daily Contact office and report any redness, swelling, drainage, increased pain, shortness of breath, or leg swelling Discharge Attestations Time Spent in Discharge Care*: greater than 30 min Specific Discharge Activities: Specific discharge activities: educating patient, discussing with pcp/other providers, discussing with bottle caser/social workers/dc planners, documenting/other paperwork and evaluating patient/reviewing data Time Spent in Smoking Cessation: Details of Smoking Cessation Education: Patient does not use tobacco Status at Discharge: Cognitive status at discharge: cognitively intact , Behavioral status at discharge: cooperative , Functional status at discharge: independent ambulation Overall status at discharge: patient is progressing back to baseline Quality Metrics Clinical Quality Measures During this hospital stay, did patient experience: None Coding Level of Care Code Acute Getter Welder for Madhu Rojas Diagnoses Status post aortic valve replacement with bioprosthetic valve during current hospitalization Z95.3 Aortic stenosis, severe I35.0 Thrombocytopenia D69.6 Atrial fibrillation I48.0 Atrial fibrillation type: paroxysmal Acute blood loss anemia D62 HTN (hypertension) I10 Hypertension type: essential hypertension PAF (paroxysmal atrial fibrillation) I48.0
[2019-11-03 10:11] VITALS: BP 124/78; PULSE 66; RESP 19; TEMP 36.6; O2SAT 94
[2019-11-03 11:00] LABS: Glucose Point of Care 120 mg/dL (70-110)
[2019-11-03 11:06] VITALS: BP 111/73; PULSE 56; RESP 18; TEMP 37; O2SAT 95
[2019-11-03 11:35] VITALS: O2SAT 91; O2SAT 93
--- NOTE | 2019-11-03 15:18 | PC.NURSE ---
DISCHARGE MEDICATIONS [facility] CALLED FLOOR AND REPORTED THAT PATIENT WAS THERE TO AUTOMOBILE CONTRACT CLERK PRESCRIPTIONS FOR METOPROLOL AND NORCO BUT DISCHARGE PAPERWORK SHOWED THAT MEDICATIONS WERE CALLED TO [facility] INSTEAD OF THEM. VERBAL ORDER FOR METOPROLOL GIVEN TO PHARMACIST BUT UNABLE TO DO SO FOR THE NORCO. PATIENT WAS GIVEN THE OPTION TO AUTOMOBILE CONTRACT CLERK NORCO FROM [facility] WHEN THEY OPEN ON SATURDAY 11/04 OR HAVE NURSE TRY TO CONTACT PROVIDER FOR A NEW SCRIPT TO BE SENT TO [facility]. PATIENT OPTED TO OBTAIN A NEW SCRIPT FROM PROVIDER. CALL PLACED TO DR. LEVY TWICE WITH NO VOICEMAIL SETUP. WILL CONTINUE TO TRY TO REACH OUT.
--- NOTE | 2019-11-03 15:37 | PC.NURSE ---
SPOKE WITH PATIENT'S ABOUT DISCHARGE MEDICATIONS. TOLD HER THAT A CALL HAS BEEN PLACED OUT TO DR. LEVY BUT HAVE WE HAVE NOT HEARD BACK FROM HIM AT THIS TIME. REPORTS THAT PATIENT IS NOT IN ANY PAIN AT THIS TIME BUT ASKED IF PATIENT COULD TAKE TYLENOL IF HE DID NEED SOMETHING FOR PAIN MANAGEMENT. WAS TOLD TYLENOL IS A SUITABLE REPLACEMENT.
== END 2019-11-03 12:30 | disposition home or self-care (01) | DRG 220 ==
LOC: ICU 16:36 → MEDSURG 11-02 12:57
PROVIDERS: Family Medicine; Admitting Provider Thoracic Surgery (Cardiothoracic Vascular Surgery); PCP Internal Medicine; Visit Provider Thoracic Surgery (Cardiothoracic Vascular Surgery)
PROC: 02RF08Z Replacement of Aortic Valve with Zooplastic Tissue, Open Approach (ICD-10-PCS; principal; 2019-10-28 07:00)
DX: I35.0 Nonrheumatic aortic (valve) stenosis (principal); I97.190 Other postprocedural cardiac functional disturbances following cardiac surgery; D62 Acute posthemorrhagic anemia; Z86.73 Personal history of transient ischemic attack (TIA), and cerebral infarction without residual deficits; I51.7 Cardiomegaly; D69.6 Thrombocytopenia, unspecified; I48.0 Paroxysmal atrial fibrillation; I45.4 Nonspecific intraventricular block; I10 Essential (primary) hypertension; E11.9 Type 2 diabetes mellitus without complications; E78.5 Hyperlipidemia, unspecified; Z87.891 Personal history of nicotine dependence; Z79.84 Long term (current) use of oral hypoglycemic drugs; Z79.82 Long term (current) use of aspirin
CPT/HCPCS: 12345; 36415; 36416; 36430; 36592; 51702; 71045; 80048; 80051; 80053; 80076; 80500; 81001; 82607; 82803; 82810; 82947; 82962; 82977; 83615; 83735; 83986; 84439; 84443; 84450; 84460; 85025; 85049; 85347; 85610; 85730; 86850; 86900; 86920; 88305; 93005; 93010; 94002; 94003; 94640; 94799; 96365; 96372; 96375; 97110; 97116; 97161; 97166; 97530; 97535; C9113; J0171; J0282; J1100; J1200; J1250; J1644; J1650; J1815; J1940; J2001; J2150; J2250; J2370; J2405; J2704; J2720; J3010; J3370; J3475; J3480; J3490; J7030; J7040; J7050; J7060; P9016; P9035; P9041; P9047

== ENCOUNTER 2019-11-28 14:16 | Outpatient (RCR) | payer OTHER, SELFPAY | END 2019-12-10 23:59 | disposition home or self-care (01) | LOC: CR 14:16 | PROVIDERS: Family Provider Internal Medicine; PCP Internal Medicine; Visit Provider Thoracic Surgery (Cardiothoracic Vascular Surgery) | DX: Z95.2 Presence of prosthetic heart valve (principal) | CPT/HCPCS: 93798 ==

== ENCOUNTER 2019-12-24 09:59 | Outpatient (RCR) | payer OTHER, SELFPAY | END 2020-01-10 23:59 | disposition home or self-care (01) | LOC: CR 09:59 | PROVIDERS: Family Provider Internal Medicine; PCP Internal Medicine; Visit Provider Thoracic Surgery (Cardiothoracic Vascular Surgery) | DX: Z95.2 Presence of prosthetic heart valve (principal) | CPT/HCPCS: 93798 ==

== ENCOUNTER → 2020-02-06 15:48 | Outpatient (BNVA) | payer OTHER, SELFPAY | PROVIDERS: Family Provider Internal Medicine; PCP Family Medicine; Visit Provider Thoracic Surgery (Cardiothoracic Vascular Surgery) | DX: L02.223 Furuncle of chest wall (principal); Z87.891 Personal history of nicotine dependence | CPT/HCPCS: 84450; 87070 ==

== ENCOUNTER 2020-02-11 07:39 | Outpatient (CLI) | payer OTHER, SELFPAY | END 2020-02-11 07:40 | disposition home or self-care (01) | LOC: CR 07:55 | PROVIDERS: Family Provider Internal Medicine; PCP Family Medicine; Visit Provider Thoracic Surgery (Cardiothoracic Vascular Surgery) | DX: L72.9 Follicular cyst of the skin and subcutaneous tissue, unspecified (principal); I96 Gangrene, not elsewhere classified | CPT/HCPCS: 11042; 99213; G0463 ==

== ENCOUNTER 2020-02-18 08:49 | Outpatient (CLI) | payer OTHER, SELFPAY | END 2020-02-18 08:50 | disposition home or self-care (01) | LOC: WOUND 08:49 | PROVIDERS: Family Provider Internal Medicine; PCP Family Medicine; Visit Provider Thoracic Surgery (Cardiothoracic Vascular Surgery) | DX: T81.89XA Other complications of procedures, not elsewhere classified, initial encounter (principal) | CPT/HCPCS: 11042 ==

== ENCOUNTER 2020-02-25 08:06 | Outpatient (CLI) | payer OTHER, SELFPAY | END 2020-02-25 08:07 | disposition home or self-care (01) | LOC: WOUND 08:07 | PROVIDERS: Family Provider Internal Medicine; PCP Family Medicine; Visit Provider Thoracic Surgery (Cardiothoracic Vascular Surgery) | DX: Z09 Encounter for follow-up examination after completed treatment for conditions other than malignant neoplasm (principal) | CPT/HCPCS: 99212 ==

== ENCOUNTER 2020-04-20 08:43 | Outpatient (CLI) | payer OTHER, SELFPAY ==
--- NOTE | 2020-04-20 08:48 | XR_ITS ---
WS: [id number] SKULL TECHNIQUE: 4 views of the skull CLINICAL INFORMATION: IMPLANT COMPARISON: None. FINDINGS: Anterior maxilla metallic dental implants. 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 XR/XR skull <4V [id number] IMPRESSION: 1. Metallic maxillary dental implants 2. 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 Patie nt likely not candidate for MRI due to inner ear prosthesis
== END 2020-04-20 08:44 | disposition home or self-care (01) ==
LOC: RAD 08:46
PROVIDERS: PCP Family Medicine; Visit Provider Orthopaedic Surgery
DX: Z96.5 Presence of tooth-root and mandibular implants (principal)
CPT/HCPCS: 70250